=== PATIENT | male | born 1980 | race Caucasian/White ===

== ENCOUNTER 2018-03-25 22:30 | Inpatient (IN) | payer SELFPAY ==
[~2018-03-25] VITALS: Ht 167.6 cm; Wt 61.8 kg
--- NOTE | ~2018-03-25 | EKG ---
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
[2018-03-25 22:30] VITALS: BP 167/116
[~2018-03-25 22:30] MED LIST: ATARAX,VISTARIL50 MG PO; ATENOLOL50 M1 PO; LEVETIRACETAM500 MG PO; LOSARTAN POTAS100 M1 PO; NATURE'S BLEND F1 MG PO; NKHM; THERA TABS1 TAB PO; VICODIN ES 7501 TAB PO; VITAMIN B-11 TAB PO; ZOFRAN4 MG PO
[2018-03-25 22:45] VITALS: BP 167/116
[2018-03-25 23:05] LABS: ACT PARTIAL THROMBO TIME 29.9 SECONDS (20.8-31.5); INTERNATIONAL NORM RATIO 1.2 (2.0-3.5)
[2018-03-25 23:10] LABS: BASO # 0.1 10*3/uL (0.0-0.1); BASO % 0.6 % (0.0-1.0); EOS # 0.1 10*3/uL (0.0-0.4); EOS % 1.2 % (1.0-4.0); HEMATOCRIT 44.9 % (42.0-52.0); HEMOGLOBIN 16.6 g/dl (14.0-18.0); LYMPH # 1.8 10*3/uL (1.3-4.4); LYMPH % 20.1 % (27.0-41.0); MEAN CELL VOLUME 104.2 fl (80.0-94.0); MEAN CORPUSCULAR HGB 38.5 pg (27.0-31.0); MEAN PLATELET VOLUME 11.2 fl (9.6-12.3); MONO # 1.1 10*3/uL (0.1-1.0); MONO % 11.7 % (3.0-9.0); NEUT # 5.9 10*3/uL (2.3-7.9); NEUT % 65.8 % (47.0-73.0); PLATELET COUNT AUTOMATED 115 10*3/uL (130-400); RED BLOOD COUNT 4.31 10*6/uL (4.50-5.90); RED CELL DISTRI WIDTH 11.9 % (0-14.5)
[2018-03-25 23:12] LABS: ALBUMIN 3.2 gm/dl (3.1-4.5); ALKALINE PHOSPHATASE 212 U/L (45-117); BUN 2 mg/dl (7-24); CHLORIDE 81 mmol/L (98-107); CREATININE 0.83 mg/dL (0.70-1.30); POTASSIUM 3.2 mmol/L (3.5-5.1); SGOT/AST 83 IU/L (3-35); SGPT/ALT 49 U/L (12-78); TOTAL PROTEIN 7.6 gm/dL (6.4-8.2)
[2018-03-25 23:13] LABS: TROPONIN I < 0.015 ng/ml (<0.045)
[2018-03-25 23:14] LABS: ACETAMINOPHEN (TYLENOL) < 5.0 ug/ml (10-30); SODIUM 118 mmol/L (136-145)
[2018-03-25 23:15] VITALS: BP 147/109
[2018-03-25 23:40] VITALS: BP 130/106
[2018-03-26] VITALS (9 sets, daily range): BP systolic 104–141; BP diastolic 70–95
[2018-03-26 00:10] LABS: BILIRUBIN 1+ (NEGATIVE); BLOOD NEGATIVE (NEGATIVE); CLARITY SL CLOUDY (CLEAR); COLOR YELLOW (YELLOW); GLUCOSE NEGATIVE (NEGATIVE); KETONE TRACE (NEGATIVE); LEUKO ESTERASE NEGATIVE (NEGATIVE); NITRITE POSITIVE (NEGATIVE); SPECIFIC GRAVITY >= 1.030 (1.005-1.030)
[2018-03-26 00:16] LABS: MUCOUS 1+
[2018-03-26 00:17] LABS: BACTERIA TRACE
[2018-03-26 00:19] LABS: URINE AMPHETAMINES < 1000 (1000ng/ml); URINE BARBITURATES < 200 (200ng/ml); URINE BENZODIAZEPINES < 200 (200ng/ml); URINE CANNABINOIDS (THC) < 50 (50ng/ml); URINE COCAINE < 300 (300ng/ml); URINE METHADONE < 300 (300ng/ml); URINE OPIATES < 300 (300ng/ml)
[2018-03-26 00:21] LABS: URINE PHENCYCLIDINE < 25 (25ng/ml)
[2018-03-26 01:12] LABS: PHOSPHOROUS 2.6 mg/dL (2.5-4.9)
[2018-03-26 04:19] LABS: URINE CHLORIDE, RANDOM < 10 mmol/L
[2018-03-26 06:56] LABS: ALBUMIN 2.6 gm/dl (3.1-4.5); ALKALINE PHOSPHATASE 167 U/L (45-117); BUN 2 mg/dl (7-24); CHLORIDE 89 mmol/L (98-107); CHOLESTEROL 79 mg/dL (<200); CREATININE 0.69 mg/dL (0.70-1.30); HDL CHOLESTEROL 22 mg/dl (40-60); LDL CHOLESTEROL 33 mg/dL (9-159); PHOSPHOROUS 3.3 mg/dL (2.5-4.9); POTASSIUM 3.8 mmol/L (3.5-5.1); SGOT/AST 64 IU/L (3-35); SGPT/ALT 37 U/L (12-78); SODIUM 126 mmol/L (136-145); TOTAL PROTEIN 5.9 gm/dL (6.4-8.2); TRIGLYCERIDES 122 mg/dl (<150); VLDL CHOLESTEROL 24 mg/dL (6-40)
[2018-03-26 06:58] LABS: FREE T4 1.01 ng/dl (0.76-1.46)
[2018-03-26 07:02] LABS: THYROID STIM HORMONE (HS) 0.918 uIU/ml (0.358-4.75)
[2018-03-26 07:31] LABS: BASO % 0.5 % (0.0-1.0); EOS # 0.1 10*3/uL (0.0-0.4); EOS % 1.6 % (1.0-4.0); LYMPH # 1.2 10*3/uL (1.3-4.4); MEAN CELL VOLUME 105.5 fl (80.0-94.0); MEAN CORPUSCULAR HGB 38.5 pg (27.0-31.0); MEAN CORPUSCULAR HGB CONC 36.5 g/dl (33.0-37.0); MEAN PLATELET VOLUME 11.1 fl (9.6-12.3); MONO # 0.8 10*3/uL (0.1-1.0); MONO % 10.8 % (3.0-9.0); NEUT # 5.1 10*3/uL (2.3-7.9); NEUT % 70.7 % (47.0-73.0); NUCLEATED RED BLOOD CELL 0.3 % (0.0-0.0); PLATELET COUNT AUTOMATED 108 10*3/uL (130-400); RED BLOOD COUNT 3.66 10*6/uL (4.50-5.90); WHITE BLOOD COUNT 7.3 10*3/uL (4.8-10.8)
[2018-03-26 08:11] LABS: HEMOGLOBIN 14.1 g/dl (14.0-18.0)
[2018-03-26 08:12] LABS: HEMATOCRIT 38.6 % (42.0-52.0)
[2018-03-27] VITALS: BP 118/82
[2018-03-27 04:00] VITALS: BP 110/76
[2018-03-27 05:52] LABS: BUN 3 mg/dl (7-24); CHLORIDE 98 mmol/L (98-107); CREATININE 0.52 mg/dL (0.70-1.30); POTASSIUM 3.2 mmol/L (3.5-5.1); SODIUM 131 mmol/L (136-145)
[2018-03-27 06:08] LABS: BASO # 0.1 10*3/uL (0.0-0.1); BASO % 0.8 % (0.0-1.0); EOS # 0.2 10*3/uL (0.0-0.4); EOS % 2.9 % (1.0-4.0); HEMATOCRIT 38.8 % (42.0-52.0); HEMOGLOBIN 14.1 g/dl (14.0-18.0); LYMPH # 1.3 10*3/uL (1.3-4.4); LYMPH % 22.2 % (27.0-41.0); MEAN CELL VOLUME 107.5 fl (80.0-94.0); MEAN CORPUSCULAR HGB 39.1 pg (27.0-31.0); MEAN CORPUSCULAR HGB CONC 36.3 g/dl (33.0-37.0); MEAN PLATELET VOLUME 11.4 fl (9.6-12.3); MONO # 0.6 10*3/uL (0.1-1.0); MONO % 9.6 % (3.0-9.0); NEUT # 3.8 10*3/uL (2.3-7.9); NEUT % 63.8 % (47.0-73.0); PLATELET COUNT AUTOMATED 114 10*3/uL (130-400); RED BLOOD COUNT 3.61 10*6/uL (4.50-5.90); RED CELL DISTRI WIDTH 12.1 % (0-14.5); WHITE BLOOD COUNT 5.9 10*3/uL (4.8-10.8)
[2018-03-27 08:00] VITALS: BP 120/84
[2018-03-27 12:00] VITALS: BP 139/98
[2018-03-27 16:00] VITALS: BP 130/82
[2018-03-27 20:00] VITALS: BP 142/92
[2018-03-28] VITALS: BP 158/98
[2018-03-28 06:04] LABS: ALBUMIN 2.7 gm/dl (3.1-4.5); BUN 4 mg/dl (7-24); CHLORIDE 98 mmol/L (98-107); CREATININE 0.53 mg/dL (0.70-1.30); POTASSIUM 3.2 mmol/L (3.5-5.1); SODIUM 132 mmol/L (136-145)
[2018-03-28 08:00] VITALS: BP 130/80
[2018-03-28 13:15] VITALS: BP 130/97
[2018-03-28 16:00] VITALS: BP 137/100
[2018-03-28 16:08] VITALS: BP 124/84
[2018-03-28 20:00] VITALS: BP 120/88
[2018-03-29] VITALS: BP 142/90
[2018-03-29 04:48] LABS: HEMATOCRIT 38.8 % (42.0-52.0); HEMOGLOBIN 13.4 g/dl (14.0-18.0); MEAN CORPUSCULAR HGB 38.3 pg (27.0-31.0); MEAN CORPUSCULAR HGB CONC 34.5 g/dl (33.0-37.0); MEAN PLATELET VOLUME 10.9 fl (9.6-12.3); RED CELL DISTRI WIDTH 12.4 % (0-14.5); WHITE BLOOD COUNT 7.6 10*3/uL (4.8-10.8)
[2018-03-29 04:57] LABS: MEAN CELL VOLUME 110.9 fl (80.0-94.0); PLATELET COUNT AUTOMATED 167 10*3/uL (130-400)
[2018-03-29 05:05] LABS: BUN 7 mg/dl (7-24); CHLORIDE 102 mmol/L (98-107); CREATININE 0.59 mg/dL (0.70-1.30); POTASSIUM 3.2 mmol/L (3.5-5.1); SODIUM 135 mmol/L (136-145)
[2018-03-29 05:15] LABS: TOTAL CELLS COUNTED 100 #CELLS
[2018-03-29 05:16] LABS: PLATELET SUFFICIENCY NORMAL (NORMAL)
[2018-03-29 08:00] VITALS: BP 124/90
== END 2018-03-29 11:22 | disposition home or self-care (01) | DRG 101 ==
LOC: ED 22:30 → ICCU 23:42 → EDHOLD 23:42 → ICCU 03-26 00:06
PROVIDERS: Family Medicine; Internal Medicine; Internal Medicine Nephrology; Student in an Organized Health Care Education/Training Program
DX: G40.909 Epilepsy, unspecified, not intractable, without status epilepticus (principal); E87.1 Hypo-osmolality and hyponatremia; F10.239 Alcohol dependence with withdrawal, unspecified; R65.10 Systemic inflammatory response syndrome (SIRS) of non-infectious origin without acute organ dysfunction; E72.20 Disorder of urea cycle metabolism, unspecified; D75.89 Other specified diseases of blood and blood-forming organs; D69.6 Thrombocytopenia, unspecified; E87.6 Hypokalemia; E87.8 Other disorders of electrolyte and fluid balance, not elsewhere classified; R73.9 Hyperglycemia, unspecified; E80.6 Other disorders of bilirubin metabolism; I10 Essential (primary) hypertension; F41.9 Anxiety disorder, unspecified; F17.210 Nicotine dependence, cigarettes, uncomplicated; Z71.6 Tobacco abuse counseling; Z82.49 Family history of ischemic heart disease and other diseases of the circulatory system; Z83.3 Family history of diabetes mellitus

== ENCOUNTER → 2018-05-27 | Emergency (ER) | payer OTHER ==
[~2018-05-27] VITALS: Ht 172.7 cm; Wt 72.6 kg
--- NOTE | ~2018-05-27 | EKG ---
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
--- NOTE | ~2018-05-27 | EKG ---
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 : 1980 Requested By: RAZA ROQUE Order Number: [id number] Reading MD: Danilo Gallagher MD Measurements Intervals [place] Rate: 139 P: 48 [place]: 184 QRS: 9 QRSD: 113 T: 85 QT: 315 QTc: 479 Interpretive Statements Sinus tachycardia Probable left atrial enlargement Borderline intraventricular conduction delay Borderline low voltage, extremity leads Minimal ST depression, lateral leads Borderline prolonged QT interval Baseline wander in lead(s) I,II,aVR,aVL,V4 Compared to ECG 03/25/2018 22:50:02 ST (T wave) deviation now present Electronically Signed On 05-28-2018 8:27:58 PST by Danilo Gallagher MD CM:EKGRPT:ELECTROCARDIOGRAM REPORT [id number] RAZA BERMUDEZ DRAFT REPORT RAZA ROQUE DO
[2018-05-27 14:04] LABS: ABG BASE EXCESS -1.1 mmol/L (-2.0-2.0); ABG HCO3 21.6 mmol/l (22-26); ABG O2 SATURATION 96.7 % (95-97); ARTERIAL BLOOD GAS PCO2 32.2 mmHg (35-45); ARTERIAL BLOOD GAS PH 7.441 (7.35-7.45); ARTERIAL BLOOD GAS PO2 84.2 mmHg (80-90)
[2018-05-27 14:49] LABS: INTERNATIONAL NORM RATIO 1.2 (2.0-3.5)
[2018-05-27 14:55] LABS: BASO % 0.2 % (0.0-1.0); EOS % 0.1 % (1.0-4.0); HEMATOCRIT 43.6 % (42.0-52.0); HEMOGLOBIN 15.7 g/dl (14.0-18.0); LYMPH # 0.6 10*3/uL (1.3-4.4); MEAN CELL VOLUME 101.6 fl (80.0-94.0); MEAN CORPUSCULAR HGB 36.6 pg (27.0-31.0); MEAN PLATELET VOLUME 11.1 fl (9.6-12.3); MONO # 0.7 10*3/uL (0.1-1.0); NEUT # 10.7 10*3/uL (2.3-7.9); NEUT % 88.1 % (47.0-73.0); PLATELET COUNT AUTOMATED 85 10*3/uL (130-400); RED BLOOD COUNT 4.29 10*6/uL (4.50-5.90); RED CELL DISTRI WIDTH 12.7 % (0-14.5); WHITE BLOOD COUNT 12.1 10*3/uL (4.8-10.8)
[2018-05-27 14:58] LABS: ALBUMIN 2.6 gm/dl (3.1-4.5); BUN 6 mg/dl (7-24); CHLORIDE 91 mmol/L (98-107); CREATININE 0.64 mg/dL (0.70-1.30); POTASSIUM 3.2 mmol/L (3.5-5.1); SGOT/AST 86 IU/L (3-35); SGPT/ALT 46 U/L (12-78); SODIUM 126 mmol/L (136-145); TOTAL PROTEIN 6.6 gm/dL (6.4-8.2)
[2018-05-27 15:03] LABS: ALKALINE PHOSPHATASE 231 U/L (45-117)
[2018-05-27 15:20] LABS: ACETAMINOPHEN (TYLENOL) < 5.0 ug/ml (10-30); ETHYL ALCOHOL < 3.0 mg/dl (<3); TROPONIN I < 0.015 ng/ml (<0.045)
[2018-05-27 15:57] LABS: BILIRUBIN NEGATIVE (NEGATIVE); BLOOD NEGATIVE (NEGATIVE); CLARITY SL CLOUDY (CLEAR); COLOR YELLOW (YELLOW); GLUCOSE TRACE (NEGATIVE); KETONE TRACE (NEGATIVE); LEUKO ESTERASE NEGATIVE (NEGATIVE); NITRITE NEGATIVE (NEGATIVE); SPECIFIC GRAVITY 1.015 (1.005-1.030)
[2018-05-27 16:08] LABS: MUCOUS 1+
[2018-05-27 16:16] LABS: URINE AMPHETAMINES < 1000 (1000ng/ml); URINE BARBITURATES < 200 (200ng/ml); URINE BENZODIAZEPINES < 200 (200ng/ml); URINE CANNABINOIDS (THC) < 50 (50ng/ml); URINE COCAINE < 300 (300ng/ml); URINE METHADONE < 300 (300ng/ml); URINE OPIATES < 300 (300ng/ml)
[2018-05-27 16:20] LABS: URINE PHENCYCLIDINE < 25 (25ng/ml)
== END ==
LOC: ED 12:21
PROVIDERS: Internal Medicine
DX: G40.909 Epilepsy, unspecified, not intractable, without status epilepticus (principal); E87.1 Hypo-osmolality and hyponatremia; I10 Essential (primary) hypertension; F17.200 Nicotine dependence, unspecified, uncomplicated

== ENCOUNTER 2018-11-28 11:22 | Inpatient (IN) | payer OTHER ==
[~2018-11-28] VITALS: Ht 172.7 cm; Wt 62.3 kg
[2018-11-28] VITALS (8 sets, daily range): BP systolic 109–150; BP diastolic 78–98
--- NOTE | ~2018-11-28 | EKG ---
[place], [place] ELECTROCARDIOGRAM REPORT NAME: LESIA NIETO UNIT #: [id number] ROOM: [facility] DOCTOR: GIOVANNA DRAFT REPORT BIRTHDATE: [birth year] [facility] Test Date: 2018-11-28 Test Time: 11:37:02 Pat Name: LESIA NIETO Department: Room: 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1980 Requested By: AMANDA MACIAS Order Number: [id number] Reading MD: Lucita Masters MD Measurements Intervals [place] Rate: 115 P: 76 [place]: 166 QRS: 4 QRSD: 82 T: 54 QT: 336 QTc: 465 Interpretive Statements Sinus tachycardia Right atrial enlargement Probable anterolateral infarct, old Minimal ST depression, anterolateral leads Compared to ECG 05/27/2018 17:42:34 Myocardial infarct finding now present ST (T wave) deviation now present Electronically Signed On 11-29-2018 11:41:08 PDT by Lucita Masters MD CM:EKGRPT:ELECTROCARDIOGRAM REPORT [id number] AMANDA MACIAS MD EPIPHANY DRAFT REPORT AMANDA MACIAS MD
[2018-11-28 11:57] LABS: ACT PARTIAL THROMBO TIME 28.2 SECONDS (20.0-32.1); INTERNATIONAL NORM RATIO 1.2 (2.0-3.5)
[2018-11-28 12:01] LABS: BASO % 0.5 % (0.0-1.0); EOS # 0.1 10*3/uL (0.0-0.4); EOS % 1.9 % (1.0-4.0); HEMATOCRIT 38.6 % (42.0-52.0); HEMOGLOBIN 14.3 g/dl (14.0-18.0); LYMPH # 1.6 10*3/uL (1.3-4.4); LYMPH % 22.3 % (27.0-41.0); MEAN CELL VOLUME 100.5 fl (80.0-94.0); MEAN CORPUSCULAR HGB 37.2 pg (27.0-31.0); MONO # 0.8 10*3/uL (0.1-1.0); MONO % 10.3 % (3.0-9.0); NEUT # 4.8 10*3/uL (2.3-7.9); NEUT % 64.7 % (47.0-73.0); PLATELET COUNT AUTOMATED 127 10*3/uL (130-400); RED BLOOD COUNT 3.84 10*6/uL (4.50-5.90); RED CELL DISTRI WIDTH 12.4 % (0-14.5); WHITE BLOOD COUNT 7.4 10*3/uL (4.8-10.8)
[2018-11-28 12:02] LABS: ALKALINE PHOSPHATASE 354 U/L (45-117); BUN 2 mg/dl (7-24); CHLORIDE 80 mmol/L (98-107); CREATININE 0.62 mg/dL (0.70-1.30); POTASSIUM 2.7 mmol/L (3.5-5.1); SGOT/AST 112 IU/L (3-35); SGPT/ALT 47 U/L (12-78); SODIUM 122 mmol/L (136-145); TOTAL PROTEIN 7.3 gm/dL (6.4-8.2)
[2018-11-28 12:06] LABS: ETHYL ALCOHOL < 3.0 mg/dl (<3); TROPONIN I < 0.015 ng/ml (<0.045)
[2018-11-28] MEDS ORDERED: TENORMIN25 M1 PO (15:05)
[2018-11-28] MEDS ORDERED: LASIX20 MG PO (15:05)
[2018-11-28] MEDS ORDERED: SODIUM CHLORIDE1 GM PO (15:07)
[2018-11-28] MEDS ORDERED: KEPPRA500 MG PO (15:08)
[2018-11-28 17:49] LABS: BILIRUBIN NEGATIVE (NEGATIVE); BLOOD NEGATIVE (NEGATIVE); CLARITY CLEAR (CLEAR); COLOR YELLOW (YELLOW); GLUCOSE NEGATIVE (NEGATIVE); KETONE NEGATIVE (NEGATIVE); LEUKO ESTERASE NEGATIVE (NEGATIVE); NITRITE NEGATIVE (NEGATIVE); SPECIFIC GRAVITY <= 1.005 (1.005-1.030)
[2018-11-28 17:53] LABS: URINE CHLORIDE, RANDOM < 10 mmol/L
[2018-11-28 17:57] LABS: URINE AMPHETAMINES < 1000 (1000ng/ml); URINE BARBITURATES < 200 (200ng/ml); URINE BENZODIAZEPINES < 200 (200ng/ml); URINE CANNABINOIDS (THC) < 50 (50ng/ml); URINE COCAINE < 300 (300ng/ml); URINE METHADONE < 300 (300ng/ml); URINE OPIATES < 300 (300ng/ml)
[2018-11-28 17:58] LABS: URINE PHENCYCLIDINE < 25 (25ng/ml)
[2018-11-28 18:05] LABS: BACTERIA TRACE; EPITHELIAL CELLS 0-2; RBC 0-2 rbc/hpf (0-2); WBC 0-2 wbc/hpf (0-5)
[2018-11-28 19:35] LABS: BUN 3 mg/dl (7-24); CHLORIDE 94 mmol/L (98-107); CREATININE 0.67 mg/dL (0.70-1.30); POTASSIUM 3.4 mmol/L (3.5-5.1); SODIUM 128 mmol/L (136-145)
[2018-11-29] VITALS: BP 136/95
[2018-11-29 04:00] VITALS: BP 132/96
[2018-11-29 06:37] LABS: BASO % 0.9 % (0.0-1.0); EOS # 0.1 10*3/uL (0.0-0.4); EOS % 3.3 % (1.0-4.0); HEMATOCRIT 34.7 % (42.0-52.0); LYMPH # 1.2 10*3/uL (1.3-4.4); LYMPH % 27.3 % (27.0-41.0); MEAN CORPUSCULAR HGB 37.2 pg (27.0-31.0); MEAN CORPUSCULAR HGB CONC 35.2 g/dl (33.0-37.0); MEAN PLATELET VOLUME 11.4 fl (9.6-12.3); MONO # 0.4 10*3/uL (0.1-1.0); MONO % 8.7 % (3.0-9.0); NEUT # 2.5 10*3/uL (2.3-7.9); NEUT % 59.3 % (47.0-73.0); PLATELET COUNT AUTOMATED 121 10*3/uL (130-400); RED BLOOD COUNT 3.28 10*6/uL (4.50-5.90); RED CELL DISTRI WIDTH 12.5 % (0-14.5); WHITE BLOOD COUNT 4.3 10*3/uL (4.8-10.8)
[2018-11-29 06:38] LABS: HEMOGLOBIN 12.2 g/dl (14.0-18.0); MEAN CELL VOLUME 105.8 fl (80.0-94.0)
[2018-11-29 06:44] LABS: ALBUMIN 2.3 gm/dl (3.1-4.5); ALKALINE PHOSPHATASE 258 U/L (45-117); BUN 3 mg/dl (7-24); CHLORIDE 98 mmol/L (98-107); PHOSPHOROUS 2.7 mg/dL (2.5-4.9); POTASSIUM 2.9 mmol/L (3.5-5.1); SGOT/AST 85 IU/L (3-35); SGPT/ALT 36 U/L (12-78); SODIUM 134 mmol/L (136-145); TOTAL PROTEIN 5.6 gm/dL (6.4-8.2)
[2018-11-29 08:00] VITALS: BP 140/100
[2018-11-29 12:00] VITALS: BP 124/88
[2018-11-29 16:00] VITALS: BP 134/94
[2018-11-29 20:00] VITALS: BP 147/93
[2018-11-30] VITALS: BP 133/91
[2018-11-30 05:53] LABS: BASO # 0.1 10*3/uL (0.0-0.1); BASO % 0.8 % (0.0-1.0); EOS # 0.3 10*3/uL (0.0-0.4); EOS % 3.6 % (1.0-4.0); HEMATOCRIT 39.5 % (42.0-52.0); HEMOGLOBIN 13.8 g/dl (14.0-18.0); LYMPH # 1.7 10*3/uL (1.3-4.4); MEAN CELL VOLUME 107.6 fl (80.0-94.0); MEAN CORPUSCULAR HGB 37.6 pg (27.0-31.0); MEAN CORPUSCULAR HGB CONC 34.9 g/dl (33.0-37.0); MEAN PLATELET VOLUME 10.9 fl (9.6-12.3); MONO # 0.7 10*3/uL (0.1-1.0); MONO % 9.8 % (3.0-9.0); NEUT # 4.5 10*3/uL (2.3-7.9); NEUT % 62.4 % (47.0-73.0); PLATELET COUNT AUTOMATED 135 10*3/uL (130-400); RED BLOOD COUNT 3.67 10*6/uL (4.50-5.90); RED CELL DISTRI WIDTH 12.4 % (0-14.5); WHITE BLOOD COUNT 7.2 10*3/uL (4.8-10.8)
[2018-11-30 06:04] LABS: ALBUMIN 2.5 gm/dl (3.1-4.5); ALKALINE PHOSPHATASE 268 U/L (45-117); BUN 2 mg/dl (7-24); CHLORIDE 103 mmol/L (98-107); CREATININE 0.52 mg/dL (0.70-1.30); PHOSPHOROUS 2.9 mg/dL (2.5-4.9); POTASSIUM 3.3 mmol/L (3.5-5.1); SGOT/AST 86 IU/L (3-35); SGPT/ALT 42 U/L (12-78); SODIUM 135 mmol/L (136-145); TOTAL PROTEIN 6.4 gm/dL (6.4-8.2)
[2018-11-30 08:00] VITALS: BP 132/88
[2018-11-30 12:00] VITALS: BP 143/99
[2018-11-30 16:00] VITALS: BP 137/100
[2018-11-30 16:30] VITALS: BP 138/90
[2018-11-30 20:00] VITALS: BP 130/90
[2018-12-01] VITALS: BP 144/96
[2018-12-01 08:00] VITALS: BP 138/98
[2018-12-01 09:42] LABS: HEMATOCRIT 40.8 % (42.0-52.0); HEMOGLOBIN 13.9 g/dl (14.0-18.0); MEAN CELL VOLUME 110.3 fl (80.0-94.0); MEAN CORPUSCULAR HGB 37.6 pg (27.0-31.0); MEAN CORPUSCULAR HGB CONC 34.1 g/dl (33.0-37.0); MEAN PLATELET VOLUME 10.7 fl (9.6-12.3); PLATELET COUNT AUTOMATED 166 10*3/uL (130-400); RED CELL DISTRI WIDTH 12.8 % (0-14.5); WHITE BLOOD COUNT 6.4 10*3/uL (4.8-10.8)
[2018-12-01 10:02] LABS: ALBUMIN 2.6 gm/dl (3.1-4.5); ALKALINE PHOSPHATASE 242 U/L (45-117); BUN 2 mg/dl (7-24); CHLORIDE 103 mmol/L (98-107); CREATININE 0.66 mg/dL (0.70-1.30); POTASSIUM 4.2 mmol/L (3.5-5.1); SGOT/AST 107 IU/L (3-35); SGPT/ALT 53 U/L (12-78); SODIUM 133 mmol/L (136-145); TOTAL PROTEIN 6.7 gm/dL (6.4-8.2)
[2018-12-01 10:11] LABS: ATYPICAL LYMPHS 1 % (0-0); TOTAL CELLS COUNTED 100 #CELLS
[2018-12-01 10:24] LABS: PLATELET SUFFICIENCY NORMAL (NORMAL)
[2018-12-01] MEDS ORDERED: POTASSIUM CHLO10 ME4 PO (10:27)
== END 2018-12-01 11:40 | disposition home or self-care (01) | DRG 101 ==
LOC: ED 11:22 → EDHOLD 12:55 → 4E 12:55 → ICCU 13:08 → 4E 11-29 18:27
PROVIDERS: Emergency Medicine; Family Medicine; Internal Medicine; Registered Nurse; ADMIT Emergency Medicine
DX: G40.909 Epilepsy, unspecified, not intractable, without status epilepticus (principal); F10.239 Alcohol dependence with withdrawal, unspecified; E44.0 Moderate protein-calorie malnutrition; E87.1 Hypo-osmolality and hyponatremia; E83.42 Hypomagnesemia; E87.6 Hypokalemia; R00.0 Tachycardia, unspecified; F41.9 Anxiety disorder, unspecified; R74.0 Nonspecific elevation of levels of transaminase and lactic acid dehydrogenase [LDH]; F17.218 Nicotine dependence, cigarettes, with other nicotine-induced disorders; K76.0 Fatty (change of) liver, not elsewhere classified; E87.8 Other disorders of electrolyte and fluid balance, not elsewhere classified; Z71.6 Tobacco abuse counseling; Z82.49 Family history of ischemic heart disease and other diseases of the circulatory system; Z83.438 Family history of other disorder of lipoprotein metabolism and other lipidemia; Z83.3 Family history of diabetes mellitus; Z79.899 Other long term (current) drug therapy; Z68.20 Body mass index [BMI] 20.0-20.9, adult

== ENCOUNTER → 2019-01-19 | Outpatient (CLI) | payer OTHER ==
[~2019-01-19] MED LIST changes: +KEPPRA500 MG PO; +LASIX20 MG PO; +POTASSIUM CHLO10 ME4 PO; +SODIUM CHLORIDE1 GM PO; +TENORMIN25 M1 PO
== END | disposition home or self-care (01) ==
LOC: RESCLI 01:32
DX: I10 Essential (primary) hypertension (principal); R56.9 Unspecified convulsions; F10.10 Alcohol abuse, uncomplicated; F17.200 Nicotine dependence, unspecified, uncomplicated; Z79.899 Other long term (current) drug therapy

== ENCOUNTER 2019-02-07 13:35 | Inpatient (IN) | payer OTHER ==
[~2019-02-07] VITALS: Ht 172.7 cm; Wt 60.9 kg
--- NOTE | ~2019-02-07 | EKG ---
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
[2019-02-07 13:39] VITALS: BP 160/110
[2019-02-07 14:00] LABS: BASO # 0.1 10*3/uL (0.0-0.1); BASO % 1.3 % (0.0-1.0); EOS # 0.1 10*3/uL (0.0-0.4); EOS % 1.8 % (1.0-4.0); HEMATOCRIT 45.7 % (42.0-52.0); HEMOGLOBIN 15.8 g/dl (14.0-18.0); LYMPH # 1.8 10*3/uL (1.3-4.4); LYMPH % 29.6 % (27.0-41.0); MEAN CELL VOLUME 100.4 fl (80.0-94.0); MEAN CORPUSCULAR HGB 34.7 pg (27.0-31.0); MEAN CORPUSCULAR HGB CONC 34.6 g/dl (33.0-37.0); MEAN PLATELET VOLUME 9.9 fl (9.6-12.3); MONO # 0.6 10*3/uL (0.1-1.0); MONO % 10.4 % (3.0-9.0); NEUT # 3.4 10*3/uL (2.3-7.9); NEUT % 56.7 % (47.0-73.0); PLATELET COUNT AUTOMATED 261 10*3/uL (130-400); RED BLOOD COUNT 4.55 10*6/uL (4.50-5.90); RED CELL DISTRI WIDTH 13.1 % (0-14.5); WHITE BLOOD COUNT 6.1 10*3/uL (4.8-10.8)
[2019-02-07 14:12] LABS: ACT PARTIAL THROMBO TIME 24.4 SECONDS (20.0-32.1); INTERNATIONAL NORM RATIO 1.1 (2.0-3.5)
[2019-02-07 14:16] LABS: ALBUMIN 3.8 gm/dl (3.1-4.5); ALKALINE PHOSPHATASE 123 U/L (45-117); BUN 4 mg/dl (7-24); CHLORIDE 98 mmol/L (98-107); CREATININE 1.15 mg/dL (0.70-1.30); LIPASE 83 U/L (73-393); POTASSIUM 3.3 mmol/L (3.5-5.1); SGOT/AST 19 IU/L (3-35); SGPT/ALT 20 U/L (12-78); SODIUM 131 mmol/L (136-145); TOTAL PROTEIN 7.7 gm/dL (6.4-8.2)
[2019-02-07 14:17] LABS: ETHYL ALCOHOL < 3.0 mg/dl (<3); TROPONIN I < 0.015 ng/ml (<0.045)
[2019-02-07 17:25] VITALS: BP 144/105
[2019-02-07 19:00] VITALS: BP 156/100
--- NOTE | 2019-02-07 19:38 | NUR ---
MEDICATION ADMINISTERED-SEE EMAR. PATIENT RESTING COMFORTBALY IN BED AT THIS TIME. RESPIRATIONS EASY, NON-LABORED ON ROOM AIR. NO DISTRESS NOTED. CALL LIGHT WITHIN REACH. PATIENT DENIES ANY NEEDS. RN WILL CONTINUE TO MONITOR.
[2019-02-07 21:00] VITALS: BP 130/85
[2019-02-07 22:45] VITALS: BP 125/85
[2019-02-07 22:56] VITALS: BP 153/106
--- NOTE | 2019-02-07 22:56 | NUR ---
A 39, admitted to ICCU, under the services of MIK Echeverria DO with a diagnosis of ALCOHOL SEIZURE. Chief complaint is SEIZURE. Patient arrived via stretcher from ER. Monitor applied. Initial assessment completed. Vital signs taken and recorded. MIK ECHEVERRIA DO notified of admission to the unit. Orders received. See assessment for past medical history, medications and allergies. Patient and/or family oriented to unit. [facility] ICCU visitation policy reviewed. Clothing/patient valuable form completed. AYDEE ARCEO
[2019-02-08] VITALS: BP 155/109
[2019-02-08 03:57] VITALS: BP 140/98
--- NOTE | 2019-02-08 07:08 | NUR ---
24 HR chart check completed.
[2019-02-08 08:00] VITALS: BP 135/96
--- NOTE | 2019-02-08 08:23 | NUR ---
PT RESTING IN BED WITH NO C/O ANY. NO SIGNS OF SEIZURES. VITALS STABLE. EATING BREAKFAST.
--- NOTE | 2019-02-08 10:30 | NUR ---
Group Supervisor Yard in to talk to patient. Patient states lives at home alone with his family checking in on him. There are 17 steps in the home. Physician: Prince Williamson Pharmacy: [facility] Home health services: none Patient's level of ADLs: INDEPENDENT Patient has working utilities: yes DME: none Follow-up physician's appointment after d/c: he states he has an appt with the resident clinic on 02/22 Does patient want to access PORTAL?: no Discharge plan discussed with patient. He lives at home with his family checking in on him. He is independent in his ADLs and ambulation. Discussed home health care services and he denies any home needs at this time. When medically stable he will be discharged to home. Her mother or father will transport on discharge. KWABENA GARCÍA
[2019-02-08 12:00] VITALS: BP 124/89
[2019-02-08 16:00] VITALS: BP 108/65
[2019-02-08 20:00] VITALS: BP 136/83
[2019-02-09] VITALS: BP 141/82
[2019-02-09 04:00] VITALS: BP 136/87
[2019-02-09 05:33] LABS: ALBUMIN 2.8 gm/dl (3.1-4.5); ALKALINE PHOSPHATASE 91 U/L (45-117); BUN 8 mg/dl (7-24); CHLORIDE 104 mmol/L (98-107); CREATININE 0.67 mg/dL (0.70-1.30); POTASSIUM 3.1 mmol/L (3.5-5.1); SGOT/AST 12 IU/L (3-35); SGPT/ALT 12 U/L (12-78); SODIUM 136 mmol/L (136-145); TOTAL PROTEIN 6.2 gm/dL (6.4-8.2)
[2019-02-09 05:55] LABS: BASO # 0.1 10*3/uL (0.0-0.1); BASO % 0.7 % (0.0-1.0); EOS # 0.3 10*3/uL (0.0-0.4); EOS % 4.5 % (1.0-4.0); HEMATOCRIT 39.7 % (42.0-52.0); HEMOGLOBIN 13.4 g/dl (14.0-18.0); LYMPH # 1.9 10*3/uL (1.3-4.4); MEAN CELL VOLUME 100.8 fl (80.0-94.0); MEAN CORPUSCULAR HGB CONC 33.8 g/dl (33.0-37.0); MEAN PLATELET VOLUME 10.7 fl (9.6-12.3); MONO # 0.6 10*3/uL (0.1-1.0); NEUT # 4.1 10*3/uL (2.3-7.9); NEUT % 59.5 % (47.0-73.0); PLATELET COUNT AUTOMATED 221 10*3/uL (130-400); RED BLOOD COUNT 3.94 10*6/uL (4.50-5.90); RED CELL DISTRI WIDTH 13.1 % (0-14.5)
[2019-02-09 08:00] VITALS: BP 137/97
--- NOTE | 2019-02-09 08:06 | NUR ---
SITTING UP IN BED WITH NO C/O ANY. DENIES AND SEIZURE ACTIVITY AT THIS TIME. VITALS STABLE. BREAKFAST ORDERED.
--- NOTE | 2019-02-09 11:00 | NUR ---
Integrated Logistics Support Manager in to see patient. No new needs or request at this time. He denies any home needs. When medically stable he will be discharged to home.
[2019-02-09 12:00] VITALS: BP 114/76
[2019-02-09 16:00] VITALS: BP 110/80
[2019-02-09 20:00] VITALS: BP 130/85
--- NOTE | 2019-02-09 20:10 | NUR ---
PT RECEIVED IN 425 VIA WC WITH BELONGINGS. ORIENTED TO ROOM HEP LOCK INTACT. ALERT. NO DISTRESS NOTED.
--- NOTE | 2019-02-09 22:17 | NUR ---
RESTING IN BED WATCHING TV. REMAINS WITHOUT DISTRESS.
[2019-02-10] VITALS: BP 129/89
--- NOTE | 2019-02-10 02:45 | NUR ---
24 HR chart check completed.
[2019-02-10 07:43] LABS: BUN 8 mg/dl (7-24); CHLORIDE 103 mmol/L (98-107); CREATININE 0.66 mg/dL (0.70-1.30); POTASSIUM 3.7 mmol/L (3.5-5.1); SODIUM 134 mmol/L (136-145)
[2019-02-10 08:00] VITALS: BP 147/95
[2019-02-10 11:42] VITALS: BP 128/92
--- NOTE | 2019-02-10 12:12 | NUR ---
[place] STAFF SPOKE PATIENT ABOUT [facility] SERVICES. PATIENT STATED THAT HE IS NOT INTERESTED AT THIS TIME. MERT CABA B.A. GAS TURBINE MECHANIC
--- NOTE | 2019-02-10 14:16 | NUR ---
Discharge instructions reviewed with patient/family. Patient receptive and verbalizes understanding. Follow-up care arranged. Written instructions given to patient/family. HOMA CHRISTY
== END 2019-02-10 14:16 | disposition home or self-care (01) | DRG 897 ==
LOC: ED 13:35 → ICCU 18:34 → 4E 18:34 → EDHOLD 18:34 → ICCU 21:57 → 4E 02-09 20:02
PROVIDERS: Emergency Medicine; ADMIT Family Medicine
DX: F10.230 Alcohol dependence with withdrawal, uncomplicated (principal); E87.1 Hypo-osmolality and hyponatremia; E87.2 Acidosis; Z71.6 Tobacco abuse counseling; F41.9 Anxiety disorder, unspecified; F17.210 Nicotine dependence, cigarettes, uncomplicated; G40.909 Epilepsy, unspecified, not intractable, without status epilepticus; Z83.3 Family history of diabetes mellitus; E87.6 Hypokalemia; Z82.49 Family history of ischemic heart disease and other diseases of the circulatory system; Z84.89 Family history of other specified conditions; R73.9 Hyperglycemia, unspecified; K76.0 Fatty (change of) liver, not elsewhere classified; D75.89 Other specified diseases of blood and blood-forming organs

== ENCOUNTER → 2019-02-22 | Outpatient (CLI) | payer OTHER ==
[2019-02-22 16:06] LABS: BUN 5 mg/dl (7-24); CHLORIDE 102 mmol/L (98-107); CREATININE 0.72 mg/dL (0.70-1.30); POTASSIUM 3.9 mmol/L (3.5-5.1); SODIUM 133 mmol/L (136-145)
== END | disposition home or self-care (01) ==
LOC: RESCLI 00:52
PROVIDERS: Internal Medicine
DX: I10 Essential (primary) hypertension (principal); R56.9 Unspecified convulsions; F10.10 Alcohol abuse, uncomplicated; F17.210 Nicotine dependence, cigarettes, uncomplicated; Z79.899 Other long term (current) drug therapy

== ENCOUNTER → 2019-05-04 | Outpatient (CLI) | payer OTHER | END | disposition home or self-care (01) | LOC: RESCLI 00:50 | DX: I10 Essential (primary) hypertension (principal); F10.10 Alcohol abuse, uncomplicated; F17.210 Nicotine dependence, cigarettes, uncomplicated; F17.200 Nicotine dependence, unspecified, uncomplicated; R56.9 Unspecified convulsions; Z79.899 Other long term (current) drug therapy; Z72.89 Other problems related to lifestyle ==

== ENCOUNTER → 2019-11-12 | Outpatient (CLI) | payer OTHER | END | disposition home or self-care (01) | LOC: RESCLI 01:58 | DX: I10 Essential (primary) hypertension (principal); R56.9 Unspecified convulsions; F10.230 Alcohol dependence with withdrawal, uncomplicated; F17.210 Nicotine dependence, cigarettes, uncomplicated; Z79.899 Other long term (current) drug therapy ==

== ENCOUNTER → 2019-11-19 | Outpatient (CLI) | payer OTHER | END | disposition home or self-care (01) | LOC: RESCLI 01:12 | DX: I10 Essential (primary) hypertension (principal); R00.0 Tachycardia, unspecified; F10.20 Alcohol dependence, uncomplicated; D64.9 Anemia, unspecified; F17.210 Nicotine dependence, cigarettes, uncomplicated; F10.230 Alcohol dependence with withdrawal, uncomplicated; Z00.00 Encounter for general adult medical examination without abnormal findings; R56.9 Unspecified convulsions; Z79.899 Other long term (current) drug therapy ==

== ENCOUNTER → 2019-12-15 | Outpatient (CLI) | payer OTHER ==
[2019-12-15 11:07] LABS: BASO # 0.1 10*3/uL (0.0-0.1); BASO % 1.3 % (0.0-1.0); EOS # 0.3 10*3/uL (0.0-0.4); EOS % 4.1 % (1.0-4.0); HEMATOCRIT 46.4 % (42.0-52.0); LYMPH # 1.9 10*3/uL (1.3-4.4); LYMPH % 24.9 % (27.0-41.0); MEAN CELL VOLUME 91.3 fl (80.0-94.0); MEAN CORPUSCULAR HGB 30.1 pg (27.0-31.0); MEAN PLATELET VOLUME 10.4 fl (9.6-12.3); MONO # 0.8 10*3/uL (0.1-1.0); NEUT # 4.4 10*3/uL (2.3-7.9); NEUT % 59.3 % (47.0-73.0); PLATELET COUNT AUTOMATED 314 10*3/uL (130-400); RED BLOOD COUNT 5.08 10*6/uL (4.50-5.90); RED CELL DISTRI WIDTH 15.1 % (0-14.5); WHITE BLOOD COUNT 7.5 10*3/uL (4.8-10.8)
[2019-12-15 11:33] LABS: ALBUMIN 3.7 gm/dl (3.1-4.5); ALKALINE PHOSPHATASE 100 U/L (45-117); BUN 8 mg/dl (7-24); CHLORIDE 102 mmol/L (98-107); CHOLESTEROL 160 mg/dL (<200); CREATININE 0.86 mg/dL (0.70-1.30); HDL CHOLESTEROL 31 mg/dl (40-60); LDL CHOLESTEROL 84 mg/dL (9-159); POTASSIUM 4.5 mmol/L (3.5-5.1); SGOT/AST 25 IU/L (3-35); SGPT/ALT 48 U/L (12-78); SODIUM 135 mmol/L (136-145); TOTAL PROTEIN 8.1 gm/dL (6.4-8.2); TRIGLYCERIDES 226 mg/dl (<150); VLDL CHOLESTEROL 45 mg/dL (6-40)
== END | disposition home or self-care (01) ==
LOC: LAB 10:21
PROVIDERS: Internal Medicine
DX: Z00.00 Encounter for general adult medical examination without abnormal findings (principal); I10 Essential (primary) hypertension; Z79.899 Other long term (current) drug therapy

== ENCOUNTER → 2019-12-21 | Outpatient (CLI) | payer OTHER | END | disposition home or self-care (01) | LOC: RESCLI 05:46 | DX: F10.10 Alcohol abuse, uncomplicated (principal); I10 Essential (primary) hypertension; R56.9 Unspecified convulsions; E78.1 Pure hyperglyceridemia; K76.0 Fatty (change of) liver, not elsewhere classified; Z71.3 Dietary counseling and surveillance; Z79.899 Other long term (current) drug therapy ==

== ENCOUNTER → 2020-03-01 | Outpatient (CLI) | payer OTHER | END | disposition home or self-care (01) | LOC: RESCLI 01:24 | PROVIDERS: ATTEND Internal Medicine Nephrology | DX: R56.9 Unspecified convulsions (principal); I10 Essential (primary) hypertension; K76.0 Fatty (change of) liver, not elsewhere classified; E78.1 Pure hyperglyceridemia; F10.20 Alcohol dependence, uncomplicated; F17.210 Nicotine dependence, cigarettes, uncomplicated; Z23 Encounter for immunization; Z71.6 Tobacco abuse counseling ==

== ENCOUNTER → 2020-06-14 | Outpatient (CLI) | payer OTHER ==
[~2020-06-14] MED LIST changes: +BACITRACIN ZINC14 GM T; +CIPRO500 MG PO; +LOSARTAN POTASS50 M1 PO; +MULTIVITAMINS1 EAC6 PO; +VITAMIN B-1100 M1 PO; +VITAMIN D250 MCG PO
== END | disposition home or self-care (01) ==
LOC: RESCLI 01:23
PROVIDERS: ATTEND Internal Medicine Nephrology
DX: E78.1 Pure hyperglyceridemia (principal); I10 Essential (primary) hypertension; R56.9 Unspecified convulsions; K76.0 Fatty (change of) liver, not elsewhere classified; F41.9 Anxiety disorder, unspecified; Z79.899 Other long term (current) drug therapy

== ENCOUNTER 2020-09-05 22:49 | Observation (INO) | payer OTHER ==
[~2020-09-05] VITALS: Ht 172.7 cm; Wt 68.6 kg
[~2020-09-05 22:49] MED LIST changes: -BACITRACIN ZINC14 GM T; -CIPRO500 MG PO; -LOSARTAN POTASS50 M1 PO; -MULTIVITAMINS1 EAC6 PO; -VITAMIN B-1100 M1 PO; -VITAMIN D250 MCG PO
[2020-09-05 23:05] VITALS: BP 187/109
[2020-09-05 23:13] LABS: BASO # 0.1 10*3/uL (0.0-0.1); BASO % 0.7 % (0.0-1.0); EOS # 0.1 10*3/uL (0.0-0.4); HEMATOCRIT 41.9 % (42.0-52.0); LYMPH # 1.5 10*3/uL (1.3-4.4); LYMPH % 16.1 % (27.0-41.0); MEAN CELL VOLUME 104.5 fl (80.0-94.0); MEAN CORPUSCULAR HGB 36.9 pg (27.0-31.0); MEAN CORPUSCULAR HGB CONC 35.3 g/dl (33.0-37.0); MEAN PLATELET VOLUME 10.6 fl (9.6-12.3); MONO # 0.7 10*3/uL (0.1-1.0); MONO % 7.3 % (3.0-9.0); NEUT % 74.4 % (47.0-73.0); PLATELET COUNT AUTOMATED 196 10*3/uL (130-400); RED BLOOD COUNT 4.01 10*6/uL (4.50-5.90); RED CELL DISTRI WIDTH 12.2 % (0-14.5); WHITE BLOOD COUNT 9.5 10*3/uL (4.8-10.8)
[2020-09-05 23:31] LABS: ALBUMIN 3.1 gm/dl (3.1-4.5); ALKALINE PHOSPHATASE 605 U/L (45-117); BUN 1 mg/dl (7-24); CHLORIDE 89 mmol/L (98-107); CREATININE 0.91 mg/dL (0.70-1.30); POTASSIUM 2.9 mmol/L (3.5-5.1); SGOT/AST 128 IU/L (3-35); SGPT/ALT 40 U/L (12-78); SODIUM 125 mmol/L (136-145); TOTAL PROTEIN 8.7 gm/dL (6.4-8.2)
[2020-09-05 23:35] LABS: ETHYL ALCOHOL < 3.0 mg/dl (<3)
[2020-09-06] VITALS (7 sets, daily range): BP systolic 121–146; BP diastolic 77–103
[2020-09-06 00:04] LABS: BILIRUBIN 2+ (Negative); BLOOD Negative (Negative); CLARITY Cloudy (Clear); COLOR Orange (Yellow); GLUCOSE 1+ (Negative); KETONE Trace (Negative); LEUKO ESTERASE 1+ (Negative); NITRITE Positive (Negative)
[2020-09-06 00:24] LABS: BACTERIA 1+
[2020-09-06 00:32] LABS: URINE AMPHETAMINES < 1000 (1000ng/ml); URINE BARBITURATES < 200 (200ng/ml); URINE BENZODIAZEPINES < 200 (200ng/ml); URINE CANNABINOIDS (THC) < 50 (50ng/ml); URINE COCAINE < 300 (300ng/ml); URINE METHADONE < 300 (300ng/ml); URINE OPIATES < 300 (300ng/ml); URINE PHENCYCLIDINE < 25 (25ng/ml)
[2020-09-06] MEDS ORDERED: ATENOLOL50 M1 PO (04:25)
[2020-09-06] MEDS ORDERED: LOSARTAN POTASS50 M1 PO (04:26)
[2020-09-06] MEDS ORDERED: LEVETIRACETAM500 MG PO (04:26)
[2020-09-06] MEDS ORDERED: MULTIVITAMINS1 EAC6 PO (04:26)
[2020-09-06 06:48] LABS: BASO % 0.4 % (0.0-1.0); EOS # 0.1 10*3/uL (0.0-0.4); EOS % 0.9 % (1.0-4.0); HEMATOCRIT 35.7 % (42.0-52.0); LYMPH # 1.2 10*3/uL (1.3-4.4); LYMPH % 14.4 % (27.0-41.0); MEAN CELL VOLUME 104.4 fl (80.0-94.0); MEAN CORPUSCULAR HGB 36.5 pg (27.0-31.0); MEAN PLATELET VOLUME 10.8 fl (9.6-12.3); MONO # 0.6 10*3/uL (0.1-1.0); MONO % 7.9 % (3.0-9.0); NEUT # 6.1 10*3/uL (2.3-7.9); NEUT % 75.9 % (47.0-73.0); PLATELET COUNT AUTOMATED 141 10*3/uL (130-400); RED BLOOD COUNT 3.42 10*6/uL (4.50-5.90); RED CELL DISTRI WIDTH 12.5 % (0-14.5)
[2020-09-06 07:08] LABS: ALBUMIN 2.6 gm/dl (3.1-4.5); ALKALINE PHOSPHATASE 470 U/L (45-117); BUN 1 mg/dl (7-24); CHLORIDE 97 mmol/L (98-107); CHOLESTEROL 152 mg/dL (<200); CREATININE 0.58 mg/dL (0.70-1.30); HDL CHOLESTEROL 17 mg/dl (40-60); LDL CHOLESTEROL 98 mg/dL (9-159); POTASSIUM 3.3 mmol/L (3.5-5.1); SGOT/AST 103 IU/L (3-35); SGPT/ALT 31 U/L (12-78); SODIUM 130 mmol/L (136-145); TRIGLYCERIDES 183 mg/dl (<150); VLDL CHOLESTEROL 37 mg/dL (6-40)
[2020-09-07] VITALS: BP 115/68
[2020-09-07 06:45] LABS: BUN 4 mg/dl (7-24); CHLORIDE 103 mmol/L (98-107); CREATININE 0.53 mg/dL (0.70-1.30); POTASSIUM 3.5 mmol/L (3.5-5.1); SODIUM 133 mmol/L (136-145)
[2020-09-07 08:00] VITALS: BP 128/62
[2020-09-07] MEDS ORDERED: CIPRO500 MG PO (12:32)
[2020-09-07] MEDS ORDERED: VITAMIN B-1100 M1 PO (12:32)
[2020-09-07] MEDS ORDERED: NATURE'S BLEND F1 MG PO (12:32)
[2020-09-07] MEDS ORDERED: BACITRACIN ZINC14 GM T (12:32)
[2020-09-07] MEDS ORDERED: VITAMIN D250 MCG PO (12:32)
== END 2020-09-07 13:20 | disposition home or self-care (01) ==
LOC: ED 22:49 → EDHOLD 09-06 01:51 → 5E 09-06 01:51
PROVIDERS: Internal Medicine; ADMIT Family Medicine; ATTEND Family Medicine
DX: G40.909 Epilepsy, unspecified, not intractable, without status epilepticus (principal); N39.0 Urinary tract infection, site not specified; E87.1 Hypo-osmolality and hyponatremia; E87.6 Hypokalemia; E87.8 Other disorders of electrolyte and fluid balance, not elsewhere classified; I16.1 Hypertensive emergency; I10 Essential (primary) hypertension; E43 Unspecified severe protein-calorie malnutrition; R73.9 Hyperglycemia, unspecified; R74.01 Elevation of levels of liver transaminase levels; R00.0 Tachycardia, unspecified; D75.89 Other specified diseases of blood and blood-forming organs; F10.10 Alcohol abuse, uncomplicated; F17.210 Nicotine dependence, cigarettes, uncomplicated; Z79.899 Other long term (current) drug therapy

== ENCOUNTER → 2020-09-27 | Outpatient (CLI) | payer OTHER ==
[~2020-09-27] MED LIST changes: +BACITRACIN ZINC14 GM T; +CIPRO500 MG PO; +LOSARTAN POTASS50 M1 PO; +MULTIVITAMINS1 EAC6 PO; +VITAMIN B-1100 M1 PO; +VITAMIN D250 MCG PO
== END | disposition home or self-care (01) ==
LOC: RESCLI 03:28
PROVIDERS: ATTEND Internal Medicine Nephrology
DX: E78.1 Pure hyperglyceridemia (principal); R56.9 Unspecified convulsions; I10 Essential (primary) hypertension; F10.10 Alcohol abuse, uncomplicated; F17.210 Nicotine dependence, cigarettes, uncomplicated; Z98.890 Other specified postprocedural states

== ENCOUNTER 2020-11-23 13:26 | Emergency (ER) | payer OTHER ==
[~2020-11-23] VITALS: Ht 175.2 cm; Wt 68.9 kg
[2020-11-23 14:28] LABS: HEMATOCRIT 37.6 % (42.0-52.0); MEAN CELL VOLUME 99.2 fl (80.0-94.0); MEAN CORPUSCULAR HGB 36.4 pg (27.0-31.0); MEAN CORPUSCULAR HGB CONC 36.7 g/dl (33.0-37.0); MEAN PLATELET VOLUME 10.8 fl (9.6-12.3); RED BLOOD COUNT 3.79 10*6/uL (4.50-5.90); RED CELL DISTRI WIDTH 13.2 % (0-14.5); WHITE BLOOD COUNT 9.6 10*3/uL (4.8-10.8)
[2020-11-23 14:48] LABS: ALBUMIN 2.2 gm/dl (3.1-4.5); ALKALINE PHOSPHATASE 515 U/L (45-117); BUN 2 mg/dl (7-24); CHLORIDE 75 mmol/L (98-107); CREATININE 0.44 mg/dL (0.70-1.30); POTASSIUM 2.6 mmol/L (3.5-5.1); SGOT/AST 139 IU/L (3-35); SGPT/ALT 33 U/L (12-78); TOTAL PROTEIN 7.1 gm/dL (6.4-8.2)
[2020-11-23 14:49] LABS: PLATELET COUNT AUTOMATED 119 10*3/uL (130-400)
[2020-11-23 14:52] LABS: BURR CELLS FEW; PLATELET SUFFICIENCY LOW (NORMAL); TOTAL CELLS COUNTED 100 #CELLS
[2020-11-23 14:53] LABS: SODIUM 110 mmol/L (136-145)
[2020-11-23 16:17] LABS: BILIRUBIN 3+ (Negative); BLOOD Negative (Negative); CLARITY Clear (Clear); COLOR Orange (Yellow); GLUCOSE Negative (Negative); KETONE Negative (Negative); LEUKO ESTERASE 1+ (Negative); NITRITE Positive (Negative); PH 5.5 (4.5-8.0); SPECIFIC GRAVITY 1.025 (1.001-1.030)
[2020-11-23 16:27] LABS: BACTERIA 1+
[2020-11-23 16:28] LABS: MUCOUS 4+
== END 2020-11-23 19:57 | disposition short-term general hospital (02) ==
LOC: ED 13:26
PROVIDERS: Student in an Organized Health Care Education/Training Program
DX: E87.1 Hypo-osmolality and hyponatremia (principal); Z79.899 Other long term (current) drug therapy

== ENCOUNTER 2021-02-04 17:57 | Inpatient (IN) | payer OTHER ==
[~2021-02-04] VITALS: Ht 175.2 cm; Wt 85.8 kg
[2021-02-04 17:58] VITALS: BP 162/115
[2021-02-04 19:01] LABS: BASO # 0.1 10*3/uL (0.0-0.1); BASO % 0.6 % (0.0-1.0); EOS # 0.2 10*3/uL (0.0-0.4); EOS % 1.9 % (1.0-4.0); HEMATOCRIT 38.6 % (42.0-52.0); LYMPH # 1.3 10*3/uL (1.3-4.4); MEAN CORPUSCULAR HGB 31.6 pg (27.0-31.0); MEAN CORPUSCULAR HGB CONC 34.7 g/dl (33.0-37.0); MEAN PLATELET VOLUME 9.4 fl (9.6-12.3); MONO # 0.6 10*3/uL (0.1-1.0); MONO % 7.7 % (3.0-9.0); NEUT # 5.6 10*3/uL (2.3-7.9); NEUT % 72.5 % (47.0-73.0); PLATELET COUNT AUTOMATED 281 10*3/uL (130-400); RED BLOOD COUNT 4.24 10*6/uL (4.50-5.90); RED CELL DISTRI WIDTH 13.1 % (0-14.5); WHITE BLOOD COUNT 7.8 10*3/uL (4.8-10.8)
[2021-02-04 19:05] VITALS: BP 140/108
[2021-02-04 19:17] LABS: ALBUMIN 2.1 gm/dl (3.1-4.5); ALKALINE PHOSPHATASE 163 U/L (45-117); BUN 8 mg/dl (7-24); CHLORIDE 96 mmol/L (98-107); CREATININE 0.52 mg/dL (0.70-1.30); LIPASE 136 U/L (73-393); POTASSIUM 3.7 mmol/L (3.5-5.1); SGOT/AST 28 IU/L (3-35); SGPT/ALT 14 U/L (12-78); SODIUM 127 mmol/L (136-145); TOTAL PROTEIN 6.9 gm/dL (6.4-8.2)
[2021-02-04 19:24] LABS: INTERNATIONAL NORM RATIO 1.3 (2.0-3.5)
[2021-02-04 19:54] LABS: BILIRUBIN 1+ (Negative); BLOOD Negative (Negative); CLARITY Cloudy (Clear); COLOR Orange (Yellow); GLUCOSE Negative (Negative); KETONE Trace (Negative); LEUKO ESTERASE Trace (Negative); NITRITE Positive (Negative); PH 5.5 (4.5-8.0); SPECIFIC GRAVITY >= 1.030 (1.001-1.030)
[2021-02-04 20:02] LABS: BACTERIA 2+; FINE GRANULAR CAST 21-30; MUCOUS 2+
[2021-02-05 04:16] VITALS: BP 150/108
[2021-02-05 04:36] LABS: HEMATOCRIT 34.9 % (42.0-52.0); MEAN CELL VOLUME 91.6 fl (80.0-94.0); MEAN CORPUSCULAR HGB 31.5 pg (27.0-31.0); MEAN CORPUSCULAR HGB CONC 34.4 g/dl (33.0-37.0); MEAN PLATELET VOLUME 9.3 fl (9.6-12.3); PLATELET COUNT AUTOMATED 270 10*3/uL (130-400); RED BLOOD COUNT 3.81 10*6/uL (4.50-5.90); RED CELL DISTRI WIDTH 13.1 % (0-14.5); WHITE BLOOD COUNT 6.1 10*3/uL (4.8-10.8)
[2021-02-05 04:53] LABS: ALBUMIN 1.9 gm/dl (3.1-4.5); ALKALINE PHOSPHATASE 146 U/L (45-117); BUN 8 mg/dl (7-24); CHLORIDE 96 mmol/L (98-107); CREATININE 0.41 mg/dL (0.70-1.30); POTASSIUM 4.4 mmol/L (3.5-5.1); SGOT/AST 24 IU/L (3-35); SGPT/ALT 12 U/L (12-78); SODIUM 126 mmol/L (136-145); TOTAL PROTEIN 6.2 gm/dL (6.4-8.2)
[2021-02-05 04:54] LABS: PLATELET SUFFICIENCY NORMAL (NORMAL); TOTAL CELLS COUNTED 100 #CELLS
[2021-02-05 06:02] VITALS: BP 145/101
[2021-02-05 09:20] VITALS: BP 141/107
[2021-02-05 17:45] VITALS: BP 128/89
[2021-02-05 20:00] VITALS: BP 115/82
[2021-02-05 20:05] LABS: BODY FLUID WBC 34 /uL
[2021-02-05 21:06] LABS: BF LYMPHOCYTES 19 %; BF MACROPHAGES 71 %; BF MESOTHELIALS 5 %; BF NEUTROPHILS 4 %
[2021-02-06] VITALS: BP 114/76
[2021-02-06 06:39] LABS: HEMATOCRIT 29.8 % (42.0-52.0); MEAN CORPUSCULAR HGB 31.8 pg (27.0-31.0); MEAN CORPUSCULAR HGB CONC 34.6 g/dl (33.0-37.0); MEAN PLATELET VOLUME 9.9 fl (9.6-12.3); PLATELET COUNT AUTOMATED 229 10*3/uL (130-400); RED BLOOD COUNT 3.24 10*6/uL (4.50-5.90); WHITE BLOOD COUNT 4.9 10*3/uL (4.8-10.8)
[2021-02-06 06:49] LABS: ALKALINE PHOSPHATASE 97 U/L (45-117); BUN 7 mg/dl (7-24); CHLORIDE 98 mmol/L (98-107); CREATININE 0.47 mg/dL (0.70-1.30); SGOT/AST 17 IU/L (3-35); SGPT/ALT 8 U/L (12-78); SODIUM 131 mmol/L (136-145); TOTAL PROTEIN 5.2 gm/dL (6.4-8.2)
[2021-02-06 07:02] LABS: POTASSIUM 2.8 mmol/L (3.5-5.1)
[2021-02-06 07:11] LABS: PLATELET SUFFICIENCY NORMAL (NORMAL); TOTAL CELLS COUNTED 100 #CELLS
[2021-02-06 08:00] VITALS: BP 92/59
[2021-02-06 12:00] VITALS: BP 104/60
[2021-02-06 16:00] VITALS: BP 108/71
[2021-02-06 20:00] VITALS: BP 105/74
[2021-02-07] VITALS: BP 109/74
[2021-02-07 06:11] LABS: ALBUMIN 1.9 gm/dl (3.1-4.5); ALKALINE PHOSPHATASE 96 U/L (45-117); BUN 6 mg/dl (7-24); CHLORIDE 96 mmol/L (98-107); CREATININE 0.45 mg/dL (0.70-1.30); POTASSIUM 3.3 mmol/L (3.5-5.1); SGOT/AST 20 IU/L (3-35); SGPT/ALT 10 U/L (12-78); SODIUM 130 mmol/L (136-145); TOTAL PROTEIN 5.2 gm/dL (6.4-8.2)
[2021-02-07 08:00] VITALS: BP 105/71
[2021-02-07 10:07] LABS: ACID FAST SPEC PROCESSING Direct Inoculation (.)
[2021-02-07 12:00] VITALS: BP 104/68
[2021-02-07 16:00] VITALS: BP 107/68
[2021-02-07 20:00] VITALS: BP 107/70
[2021-02-08] VITALS: BP 109/65
[2021-02-08 07:56] LABS: ALKALINE PHOSPHATASE 94 U/L (45-117); BUN 5 mg/dl (7-24); CHLORIDE 97 mmol/L (98-107); CREATININE 0.36 mg/dL (0.70-1.30); POTASSIUM 3.7 mmol/L (3.5-5.1); SGOT/AST 26 IU/L (3-35); SGPT/ALT 10 U/L (12-78); SODIUM 132 mmol/L (136-145); TOTAL PROTEIN 5.4 gm/dL (6.4-8.2)
[2021-02-08 08:00] VITALS: BP 99/66
[2021-02-08 08:04] LABS: BASO # 0.1 10*3/uL (0.0-0.1); BASO % 0.9 % (0.0-1.0); EOS # 0.3 10*3/uL (0.0-0.4); EOS % 5.3 % (1.0-4.0); HEMATOCRIT 32.3 % (42.0-52.0); LYMPH # 1.5 10*3/uL (1.3-4.4); LYMPH % 28.7 % (27.0-41.0); MEAN CELL VOLUME 92.6 fl (80.0-94.0); MEAN CORPUSCULAR HGB 31.2 pg (27.0-31.0); MEAN CORPUSCULAR HGB CONC 33.7 g/dl (33.0-37.0); MEAN PLATELET VOLUME 10.2 fl (9.6-12.3); MONO # 0.6 10*3/uL (0.1-1.0); MONO % 11.9 % (3.0-9.0); NEUT # 2.8 10*3/uL (2.3-7.9); NEUT % 52.8 % (47.0-73.0); PLATELET COUNT AUTOMATED 237 10*3/uL (130-400); RED BLOOD COUNT 3.49 10*6/uL (4.50-5.90); RED CELL DISTRI WIDTH 13.2 % (0-14.5); WHITE BLOOD COUNT 5.3 10*3/uL (4.8-10.8)
[2021-02-08] MEDS ORDERED: PANTOPRAZOLE SO40 MG PO (11:49)
[2021-02-08] MEDS ORDERED: FUROSEMIDE40 MG PO (11:49)
[2021-02-08] MEDS ORDERED: SPIRONOLACTONE100 MG PO (11:49)
[2021-02-08 12:00] VITALS: BP 98/60
== END 2021-02-08 14:30 | disposition home or self-care (01) | DRG 280 ==
LOC: ED 17:57 → EDHOLD 22:36 → 4E 22:36
PROVIDERS: Family Medicine; Hospitalist; Internal Medicine; ADMIT Student in an Organized Health Care Education/Training Program; ATTEND Student in an Organized Health Care Education/Training Program
PROC: 0W9G3ZZ Drainage of Peritoneal Cavity, Percutaneous Approach (ICD-10-PCS; principal; 2021-02-05)
DX: K70.31 Alcoholic cirrhosis of liver with ascites (principal); D64.9 Anemia, unspecified; F17.210 Nicotine dependence, cigarettes, uncomplicated; E87.1 Hypo-osmolality and hyponatremia; E43 Unspecified severe protein-calorie malnutrition; E66.9 Obesity, unspecified; I10 Essential (primary) hypertension; E87.8 Other disorders of electrolyte and fluid balance, not elsewhere classified; F41.9 Anxiety disorder, unspecified; N39.0 Urinary tract infection, site not specified; E87.6 Hypokalemia; I16.0 Hypertensive urgency; G40.909 Epilepsy, unspecified, not intractable, without status epilepticus; E80.6 Other disorders of bilirubin metabolism; D68.9 Coagulation defect, unspecified; Z71.6 Tobacco abuse counseling; Z79.899 Other long term (current) drug therapy; Z82.49 Family history of ischemic heart disease and other diseases of the circulatory system; Z83.3 Family history of diabetes mellitus; Z68.27 Body mass index [BMI] 27.0-27.9, adult

== ENCOUNTER → 2021-02-21 | Outpatient (CLI) | payer OTHER ==
[~2021-02-21] MED LIST changes: +FUROSEMIDE40 MG PO; +PANTOPRAZOLE SO40 MG PO; +SPIRONOLACTONE100 MG PO
[2021-02-21 13:04] VITALS: BP 144/98
== END | disposition home or self-care (01) ==
LOC: EDSTATUS 11:00
PROVIDERS: ATTEND Student in an Organized Health Care Education/Training Program
DX: R18.8 Other ascites (principal); F41.9 Anxiety disorder, unspecified; G40.909 Epilepsy, unspecified, not intractable, without status epilepticus; F17.210 Nicotine dependence, cigarettes, uncomplicated; Z79.899 Other long term (current) drug therapy

== ENCOUNTER → 2021-02-27 | Outpatient (CLI) | payer OTHER | END | disposition home or self-care (01) | LOC: RESCLI 01:19 | PROVIDERS: ATTEND Internal Medicine | DX: R56.9 Unspecified convulsions (principal); I10 Essential (primary) hypertension; E78.1 Pure hyperglyceridemia; K70.31 Alcoholic cirrhosis of liver with ascites; F17.210 Nicotine dependence, cigarettes, uncomplicated; Z72.89 Other problems related to lifestyle; Z79.899 Other long term (current) drug therapy ==

== ENCOUNTER → 2021-03-01 | Outpatient (CLI) | payer OTHER ==
[2021-03-01 16:04] LABS: INTERNATIONAL NORM RATIO 1.1 (2.0-3.5)
[2021-03-02 17:06] LABS: APTT 27.1 sec (22.9-30.2)
== END | disposition home or self-care (01) ==
LOC: LAB 14:31
PROVIDERS: Internal Medicine; ATTEND Internal Medicine
DX: K70.31 Alcoholic cirrhosis of liver with ascites (principal)

== ENCOUNTER → 2021-03-07 | Outpatient (CLI) | payer OTHER | END | disposition home or self-care (01) | LOC: EDSTATUS 13:00 | PROVIDERS: ATTEND Student in an Organized Health Care Education/Training Program | DX: K74.60 Unspecified cirrhosis of liver (principal); R18.8 Other ascites ==

== ENCOUNTER → 2021-03-27 | Outpatient (CLI) | payer OTHER ==
[2021-03-27 13:30] LABS: ACT PARTIAL THROMBO TIME 28.7 SECONDS (20.0-32.1); INTERNATIONAL NORM RATIO 1.2 (2.0-3.5)
== END | disposition home or self-care (01) ==
LOC: LAB 00:19
PROVIDERS: Internal Medicine; ATTEND Internal Medicine
DX: K70.31 Alcoholic cirrhosis of liver with ascites (principal)

== ENCOUNTER → 2021-04-25 | Outpatient (CLI) | payer OTHER ==
[2021-04-25 12:21] LABS: ACT PARTIAL THROMBO TIME 28.9 SECONDS (20.0-32.1); INTERNATIONAL NORM RATIO 1.1 (2.0-3.5)
== END | disposition home or self-care (01) ==
LOC: LAB 11:25
PROVIDERS: Internal Medicine; ATTEND Family Medicine
DX: K70.31 Alcoholic cirrhosis of liver with ascites (principal)

== ENCOUNTER → 2021-05-03 | Outpatient (CLI) | payer OTHER | END | disposition home or self-care (01) | LOC: EDSTATUS 10:30 | PROVIDERS: ATTEND Student in an Organized Health Care Education/Training Program | DX: K70.31 Alcoholic cirrhosis of liver with ascites (principal) ==

== ENCOUNTER → 2021-05-22 | Outpatient (CLI) | payer OTHER ==
[2021-05-22 14:00] LABS: ACT PARTIAL THROMBO TIME 28.5 SECONDS (20.0-32.1); INTERNATIONAL NORM RATIO 1.1 (2.0-3.5)
== END | disposition home or self-care (01) ==
LOC: LAB 13:13
PROVIDERS: Internal Medicine; ATTEND Internal Medicine
DX: K70.31 Alcoholic cirrhosis of liver with ascites (principal)

== ENCOUNTER → 2021-06-08 | Outpatient (CLI) | payer OTHER | END | disposition home or self-care (01) | LOC: RESCLI 02:33 | PROVIDERS: ATTEND Internal Medicine | DX: K70.31 Alcoholic cirrhosis of liver with ascites (principal); E78.1 Pure hyperglyceridemia; I10 Essential (primary) hypertension; R56.9 Unspecified convulsions; Z79.899 Other long term (current) drug therapy ==

== ENCOUNTER → 2021-06-20 | Outpatient (CLI) | payer OTHER ==
[2021-06-20 11:36] LABS: BASO # 0.1 10*3/uL (0.0-0.1); BASO % 1.1 % (0.0-1.0); EOS # 0.4 10*3/uL (0.0-0.4); EOS % 4.5 % (1.0-4.0); HEMATOCRIT 38.6 % (42.0-52.0); LYMPH # 2.7 10*3/uL (1.3-4.4); MEAN CELL VOLUME 87.7 fl (80.0-94.0); MEAN CORPUSCULAR HGB 29.5 pg (27.0-31.0); MEAN CORPUSCULAR HGB CONC 33.7 g/dl (33.0-37.0); MEAN PLATELET VOLUME 10.5 fl (9.6-12.3); MONO # 0.6 10*3/uL (0.1-1.0); MONO % 7.1 % (3.0-9.0); NEUT # 4.6 10*3/uL (2.3-7.9); NEUT % 55.1 % (47.0-73.0); PLATELET COUNT AUTOMATED 230 10*3/uL (130-400); RED CELL DISTRI WIDTH 12.9 % (0-14.5); WHITE BLOOD COUNT 8.3 10*3/uL (4.8-10.8)
[2021-06-20 11:46] LABS: ACT PARTIAL THROMBO TIME 29.2 SECONDS (20.0-32.1); INTERNATIONAL NORM RATIO 1.1 (2.0-3.5)
[2021-06-20 11:56] LABS: ALBUMIN 3.6 gm/dl (3.1-4.5); ALKALINE PHOSPHATASE 117 U/L (45-117); BUN 9 mg/dl (7-24); CHLORIDE 103 mmol/L (98-107); CHOLESTEROL 154 mg/dL (<200); CREATININE 0.74 mg/dL (0.70-1.30); LDL CHOLESTEROL 93 mg/dL (9-159); POTASSIUM 4.5 mmol/L (3.5-5.1); SGOT/AST 25 IU/L (3-35); SGPT/ALT 26 U/L (12-78); SODIUM 132 mmol/L (136-145); TOTAL PROTEIN 7.8 gm/dL (6.4-8.2); TRIGLYCERIDES 169 mg/dl (<150)
== END | disposition home or self-care (01) ==
LOC: LAB 11:05
PROVIDERS: Internal Medicine; ATTEND Internal Medicine
DX: K70.31 Alcoholic cirrhosis of liver with ascites (principal)

== ENCOUNTER → 2021-07-17 | Outpatient (CLI) | payer OTHER ==
[2021-07-17 14:37] LABS: BASO # 0.1 10*3/uL (0.0-0.1); EOS # 0.3 10*3/uL (0.0-0.4); HEMATOCRIT 40.2 % (42.0-52.0); LYMPH # 2.4 10*3/uL (1.3-4.4); LYMPH % 30.1 % (27.0-41.0); MEAN CELL VOLUME 85.4 fl (80.0-94.0); MEAN CORPUSCULAR HGB 29.3 pg (27.0-31.0); MEAN CORPUSCULAR HGB CONC 34.3 g/dl (33.0-37.0); MONO # 0.6 10*3/uL (0.1-1.0); MONO % 7.8 % (3.0-9.0); NEUT # 4.5 10*3/uL (2.3-7.9); NEUT % 56.8 % (47.0-73.0); PLATELET COUNT AUTOMATED 230 10*3/uL (130-400); RED BLOOD COUNT 4.71 10*6/uL (4.50-5.90); RED CELL DISTRI WIDTH 12.9 % (0-14.5); WHITE BLOOD COUNT 7.9 10*3/uL (4.8-10.8)
[2021-07-17 14:51] LABS: INTERNATIONAL NORM RATIO 1.1 (2.0-3.5)
[2021-07-17 14:56] LABS: ALKALINE PHOSPHATASE 125 U/L (45-117); BUN 8 mg/dl (7-24); CHLORIDE 105 mmol/L (98-107); CREATININE 0.92 mg/dL (0.70-1.30); POTASSIUM 3.8 mmol/L (3.5-5.1); SGOT/AST 22 IU/L (3-35); SGPT/ALT 26 U/L (12-78); SODIUM 134 mmol/L (136-145); TOTAL PROTEIN 8.2 gm/dL (6.4-8.2)
[2021-07-18 08:08] LABS: HEPATITIS B SURFACE AG Negative (Negative)
== END ==
LOC: LAB 13:59
PROVIDERS: Internal Medicine; Student in an Organized Health Care Education/Training Program; ATTEND Internal Medicine
DX: K70.31 Alcoholic cirrhosis of liver with ascites (principal)

== ENCOUNTER → 2021-08-15 | Outpatient (CLI) | payer OTHER ==
[2021-08-15 12:56] LABS: ACT PARTIAL THROMBO TIME 30.4 SECONDS (20.0-32.1)
== END | disposition home or self-care (01) ==
LOC: LAB 11:48
PROVIDERS: Internal Medicine; ATTEND Internal Medicine
DX: K70.31 Alcoholic cirrhosis of liver with ascites (principal)

== ENCOUNTER → 2021-11-09 | Outpatient (CLI) | payer OTHER ==
[2021-11-09 11:55] LABS: BASO # 0.1 10*3/uL (0.0-0.1); BASO % 0.6 % (0.0-1.0); EOS # 0.3 10*3/uL (0.0-0.4); EOS % 2.7 % (1.0-4.0); HEMATOCRIT 41.2 % (42.0-52.0); LYMPH # 2.5 10*3/uL (1.3-4.4); LYMPH % 24.7 % (27.0-41.0); MEAN CELL VOLUME 82.4 fl (80.0-94.0); MEAN CORPUSCULAR HGB 28.8 pg (27.0-31.0); MEAN PLATELET VOLUME 10.7 fl (9.6-12.3); MONO # 0.7 10*3/uL (0.1-1.0); MONO % 6.6 % (3.0-9.0); NEUT # 6.6 10*3/uL (2.3-7.9); PLATELET COUNT AUTOMATED 199 10*3/uL (130-400); RED CELL DISTRI WIDTH 13.3 % (0-14.5); WHITE BLOOD COUNT 10.1 10*3/uL (4.8-10.8)
[2021-11-09 12:30] LABS: ALKALINE PHOSPHATASE 125 U/L (45-117); BUN 14 mg/dl (7-24); CHLORIDE 107 mmol/L (98-107); CHOLESTEROL 171 mg/dL (<200); CREATININE 0.99 mg/dL (0.70-1.30); LDL CHOLESTEROL 106 mg/dL (9-159); POTASSIUM 4.1 mmol/L (3.5-5.1); SGOT/AST 22 IU/L (3-35); SGPT/ALT 24 U/L (12-78); SODIUM 138 mmol/L (136-145); TOTAL PROTEIN 7.8 gm/dL (6.4-8.2); TRIGLYCERIDES 188 mg/dl (<150)
== END | disposition home or self-care (01) ==
LOC: LAB 11:35
PROVIDERS: ATTEND Family Medicine
DX: Z13.6 Encounter for screening for cardiovascular disorders (principal); R63.4 Abnormal weight loss; I10 Essential (primary) hypertension; Z13.1 Encounter for screening for diabetes mellitus; Z79.899 Other long term (current) drug therapy

== ENCOUNTER → 2021-11-14 | Outpatient (CLI) | payer OTHER | END | disposition home or self-care (01) | LOC: US 12:52 | PROVIDERS: ATTEND Family Medicine | DX: K40.90 Unilateral inguinal hernia, without obstruction or gangrene, not specified as recurrent (principal) ==

== ENCOUNTER → 2022-02-04 | Outpatient (CLI) | payer OTHER ==
[2022-02-04 09:35] LABS: CHOLESTEROL 170 mg/dL (<200); LDL CHOLESTEROL 89 mg/dL (9-159); TRIGLYCERIDES 271 mg/dl (<150)
== END | disposition home or self-care (01) ==
LOC: LAB 08:49
PROVIDERS: ATTEND Family Medicine
DX: E78.2 Mixed hyperlipidemia (principal)

== ENCOUNTER → 2022-03-13 | Outpatient (CLI) | payer OTHER ==
[2022-03-13 16:13] LABS: ALKALINE PHOSPHATASE 107 U/L (45-117); BUN 7 mg/dl (7-24); CHLORIDE 99 mmol/L (98-107); CREATININE 0.74 mg/dL (0.70-1.30); POTASSIUM 3.9 mmol/L (3.5-5.1); SGOT/AST 19 IU/L (3-35); SGPT/ALT 28 U/L (12-78); SODIUM 132 mmol/L (136-145); TOTAL PROTEIN 7.8 gm/dL (6.4-8.2)
[2022-03-13 16:25] LABS: BASO # 0.1 10*3/uL (0.0-0.1); BASO % 0.9 % (0.0-1.0); EOS # 0.3 10*3/uL (0.0-0.4); EOS % 2.7 % (1.0-4.0); HEMATOCRIT 39.4 % (42.0-52.0); LYMPH # 3.1 10*3/uL (1.3-4.4); LYMPH % 32.8 % (27.0-41.0); MEAN CELL VOLUME 84.4 fl (80.0-94.0); MEAN CORPUSCULAR HGB CONC 36.8 g/dl (33.0-37.0); MEAN PLATELET VOLUME 10.6 fl (9.6-12.3); MONO # 0.6 10*3/uL (0.1-1.0); MONO % 6.2 % (3.0-9.0); NEUT # 5.3 10*3/uL (2.3-7.9); PLATELET COUNT AUTOMATED 249 10*3/uL (130-400); RED BLOOD COUNT 4.67 10*6/uL (4.50-5.90); RED CELL DISTRI WIDTH 12.8 % (0-14.5); WHITE BLOOD COUNT 9.3 10*3/uL (4.8-10.8)
== END | disposition home or self-care (01) ==
LOC: LAB 14:57
PROVIDERS: ATTEND Nurse Practitioner Family
DX: K70.31 Alcoholic cirrhosis of liver with ascites (principal)

== ENCOUNTER → 2023-03-24 | Outpatient (CLI) | payer OTHER ==
[2023-03-24 12:01] LABS: HEMATOCRIT 46.3 % (42.0-52.0); MEAN CELL VOLUME 96.5 fl (80.0-94.0); MEAN CORPUSCULAR HGB CONC 36.3 g/dl (33.0-37.0); MEAN PLATELET VOLUME 9.7 fl (9.6-12.3); RED BLOOD COUNT 4.8 10*6/uL (4.50-5.90); WHITE BLOOD COUNT 4.8 10*3/uL (4.8-10.8)
[2023-03-24 12:12] LABS: INTERNATIONAL NORM RATIO 1.1 (2.0-3.5)
[2023-03-24 12:23] LABS: ALKALINE PHOSPHATASE 116 U/L (46-116); CHLORIDE 93 mmol/L (98-107); CHOLESTEROL 196 mg/dL (<200); LDL CHOLESTEROL 77 mg/dL (9-159); POTASSIUM 3.3 mmol/L (3.4-5.1); SGPT/ALT 37 U/L (5-49); TOTAL PROTEIN 7.3 gm/dL (6.0-8.0); TRIGLYCERIDES 271 mg/dl (<150)
[2023-03-24 12:24] LABS: BUN < 5 mg/dl (9-23)
== END | disposition home or self-care (01) ==
LOC: LAB 11:37
PROVIDERS: ATTEND Nurse Practitioner Family
DX: I10 Essential (primary) hypertension (principal); K70.31 Alcoholic cirrhosis of liver with ascites

== ENCOUNTER 2024-01-06 16:40 | Inpatient (IN) | payer OTHER ==
[~2024-01-06] VITALS: Ht 175.3 cm; Wt 70.3 kg
[~2024-01-06 16:40] MED LIST changes: +KRISTALOSE20 GM PO; +NORVASC5 MG PO
[2024-01-06 16:50] VITALS: BP 132/84
[2024-01-06] MEDS ORDERED: SODIUM CHLORIDE 0.9% 1,000 ML IV ONE ×2 (16:50→20:15)
[2024-01-06 17:42] LABS: ACT PARTIAL THROMBO TIME 29.9 SECONDS (20.0-32.1)
[2024-01-06 17:47] LABS: HEMATOCRIT 45.3 % (42.0-52.0); MEAN CELL VOLUME 88.8 fl (80.0-94.0); MEAN CORPUSCULAR HGB 34.1 pg (27.0-31.0); MEAN PLATELET VOLUME 10.7 fl (9.6-12.3); PLATELET COUNT AUTOMATED 108 10*3/uL (130-400); RED CELL DISTRI WIDTH 14.7 % (0-14.5); WHITE BLOOD COUNT 9.4 10*3/uL (4.8-10.8)
[2024-01-06 17:57] LABS: MEAN CORPUSCULAR HGB CONC 38.4 g/dl (33.0-37.0)
[2024-01-06 17:58] LABS: MANUAL DIFF REFLEX YES
[2024-01-06 18:00] LABS: PLATELET SUFFICIENCY NORMAL (NORMAL); TOTAL CELLS COUNTED 100 #CELLS
[2024-01-06 18:02] LABS: ALKALINE PHOSPHATASE 243 U/L (46-116); CHLORIDE 79 mmol/L (98-107); CPK 306 U/L (34-171); LIPASE 28 U/L (12-53); POTASSIUM 3.3 mmol/L (3.4-5.1); SGPT/ALT 49 U/L (5-49); TOTAL PROTEIN 7.5 gm/dL (6.0-8.0)
[2024-01-06 18:10] LABS: BILIRUBIN Negative (Negative); BLOOD Negative (Negative); CLARITY Clear (Clear); COLOR Orange (Yellow); GLUCOSE Trace (Negative); KETONE Trace (Negative); LEUKO ESTERASE Negative (Negative); NITRITE Negative (Negative); SPECIFIC GRAVITY 1.015 (1.001-1.030)
[2024-01-06 18:18] LABS: BUN < 5 mg/dl (9-23)
[2024-01-06 18:20] LABS: URINE AMPHETAMINES Negative (1000ng/ml); URINE BARBITURATES Negative (200ng/ml); URINE BENZODIAZEPINES Positive (200ng/ml); URINE CANNABINOIDS (THC) Negative (50ng/ml); URINE COCAINE Negative (300ng/ml); URINE METHADONE Negative (300ng/ml); URINE OPIATES Negative (300ng/ml); URINE PHENCYCLIDINE Negative (25ng/ml)
[2024-01-06 18:20] LABS: ETHYL ALCOHOL < 3.0 mg/dl (<3)
[2024-01-06 18:23] LABS: BACTERIA 2+; MUCOUS 1+
[2024-01-06 18:24] VITALS: BP 134/90
[2024-01-06] MEDS ORDERED: Midazolam Hydrochloride 5 MG/5 ML VIAL IV ONE ×2 (19:45→22:50)
[2024-01-06] MEDS ORDERED: Ceftriaxone Sodium 1 GM/10 ML SYR IV ONE (19:50)
[2024-01-06 19:51] VITALS: BP 146/104
[2024-01-06 20:48] VITALS: BP 158/87
[2024-01-06 21:04] LABS: BUN 7 mg/dl (9-23); CHLORIDE 83 mmol/L (98-107); POTASSIUM 3.3 mmol/L (3.4-5.1)
[2024-01-06 22:32] VITALS: BP 141/96
[2024-01-06 22:49] VITALS: BP 143/87
[2024-01-06] MEDS ORDERED: Ondansetron Hydrochloride 4 MG/2 ML VIAL IV PRN (23:05)
[2024-01-06] MEDS ORDERED: BISACODYL 10 MG SUPP R PRN (23:05)
[2024-01-06] MEDS ORDERED: BISACODYL 5 MG TAB PO PRN (23:05)
[2024-01-06] MEDS ORDERED: Magnesium Hydroxide 30 ML UDC PO PRN (23:05)
[2024-01-06] MEDS ORDERED: Ketorolac Tromethamine 15 MG/ML VIAL IV PRN (23:10)
[2024-01-06] MEDS ORDERED: LORazepam 2 MG/ML VIAL IV PRN (23:25)
[2024-01-06] MEDS ORDERED: Water, Sterile 10 ML VIAL IV PRN (23:25)
[2024-01-06] MEDS ORDERED: hydrOXYzine 50 MG CAP PO PRN (23:25)
[2024-01-06] MEDS ORDERED: Dicyclomine Hydrochloride 20 MG TAB PO PRN (23:25)
[2024-01-06] MEDS ORDERED: METHOCARBAMOL 750 MG TAB PO PRN (23:25)
[2024-01-07] VITALS (9 sets, daily range): BP systolic 110–164; BP diastolic 69–106
[2024-01-07] MEDS ORDERED: AZITHROMYCIN 250 ML IV SCH (01:29)
[2024-01-07] MEDS ORDERED: DIAZEPAM 10 MG/2 ML SYR IV ONE (02:20)
[2024-01-07 02:25] LABS: BUN 6 mg/dl (9-23); CHLORIDE 86 mmol/L (98-107); POTASSIUM 3.1 mmol/L (3.4-5.1)
[2024-01-07] MEDS ORDERED: DEXMEDETOMIDINE IN 0.9 % NACL 100 ML IV SCH (03:45)
[2024-01-07] MEDS ORDERED: ERYTHROMYCIN 1 GM TUBE OPH SCH (06:00)
[2024-01-07 06:41] LABS: CHLORIDE 90 mmol/L (98-107); POTASSIUM 2.6 mmol/L (3.4-5.1)
[2024-01-07 06:43] LABS: BUN < 5 mg/dl (9-23)
[2024-01-07] MEDS ORDERED: POTASSIUM CHLORIDE IN WATER 100 ML IV SCH ×3 (07:00→20:00)
[2024-01-07] MEDS ORDERED: Lactated Ringer's Solution 1,000 ML IV SCH ×2 (09:35→16:30)
[2024-01-07] MEDS ORDERED: Thiamine 200 MG/2 ML VIAL IV SCH (10:00)
[2024-01-07] MEDS ORDERED: LEVETIRACETAM IN NACL (ISO-OS) 100 ML IV SCH (10:00)
[2024-01-07] MEDS ORDERED: Enoxaparin Sodium 40 MG/0.4 ML SYR SC SCH (10:00)
[2024-01-07 10:24] LABS: BUN 5 mg/dl (9-23); CHLORIDE 90 mmol/L (98-107); POTASSIUM 2.9 mmol/L (3.4-5.1)
[2024-01-07 14:31] LABS: BUN 5 mg/dl (9-23); CHLORIDE 95 mmol/L (98-107); POTASSIUM 2.9 mmol/L (3.4-5.1)
[2024-01-07] MEDS ORDERED: LACTULOSE 20 GM/30 ML UDC R ONE (15:35)
[2024-01-07] MEDS ORDERED: LACTULOSE 20 GM/30 ML UDC PO SCH (16:45)
[2024-01-07] MEDS ORDERED: PANTOPRAZOLE SO40 MG PO (17:34)
[2024-01-07] MEDS ORDERED: MULTIPLE VITAM1 EAC2 PO (17:35)
[2024-01-07] MEDS ORDERED: CO Q-10200 MG PO (17:36)
[2024-01-07 17:57] LABS: BUN 6 mg/dl (9-23); CHLORIDE 94 mmol/L (98-107); POTASSIUM 2.7 mmol/L (3.4-5.1)
[2024-01-07] MEDS ORDERED: amLODIPine besylate 5 MG TAB PO SCH (18:21)
[2024-01-07] MEDS ORDERED: LORazepam 1 MG TAB PO SCH ×3 (20:00)
[2024-01-07] MEDS ORDERED: Ceftriaxone Sodium 1 GM in SYRINGE INFUSION 10 ML IV SCH (22:00)
[2024-01-07 22:17] LABS: BUN 6 mg/dl (9-23); CHLORIDE 95 mmol/L (98-107); POTASSIUM 3.2 mmol/L (3.4-5.1)
[2024-01-08] VITALS: BP 158/105
[2024-01-08] MEDS ORDERED: LORazepam 1 MG TAB PO PRN
[2024-01-08 02:16] LABS: BUN 6 mg/dl (9-23); CHLORIDE 95 mmol/L (98-107); POTASSIUM 2.7 mmol/L (3.4-5.1)
[2024-01-08] MEDS ORDERED: POTASSIUM CHLORIDE IN WATER 100 ML IV SCH (03:00)
[2024-01-08 04:00] VITALS: BP 131/94
[2024-01-08 05:14] LABS: BUN 6 mg/dl (9-23); CHLORIDE 95 mmol/L (98-107); POTASSIUM 3.1 mmol/L (3.4-5.1)
[2024-01-08 07:10] LABS: BASO % 0.6 % (0.0-1.0); EOS # 0.1 10*3/uL (0.0-0.4); EOS % 1.5 % (1.0-4.0); HEMATOCRIT 38.2 % (42.0-52.0); LYMPH # 1.2 10*3/uL (1.3-4.4); LYMPH % 22.9 % (27.0-41.0); MEAN CORPUSCULAR HGB 34.1 pg (27.0-31.0); MEAN CORPUSCULAR HGB CONC 36.4 g/dl (33.0-37.0); MEAN PLATELET VOLUME 11.4 fl (9.6-12.3); MONO # 0.5 10*3/uL (0.1-1.0); MONO % 10.2 % (3.0-9.0); NEUT # 3.4 10*3/uL (2.3-7.9); NEUT % 64.2 % (47.0-73.0); PLATELET COUNT AUTOMATED 81 10*3/uL (130-400); RED BLOOD COUNT 4.08 10*6/uL (4.50-5.90); RED CELL DISTRI WIDTH 14.8 % (0-14.5); WHITE BLOOD COUNT 5.3 10*3/uL (4.8-10.8)
[2024-01-08 07:13] LABS: MEAN CELL VOLUME 93.6 fl (80.0-94.0)
[2024-01-08] MEDS ORDERED: MAGNESIUM SULFATE 50 ML IV ONE (07:25)
[2024-01-08 08:00] VITALS: BP 120/76
[2024-01-08] MEDS ORDERED: Lactated Ringer's Solution 1,000 ML IV ONE (10:45)
[2024-01-08 10:47] LABS: BUN 6 mg/dl (9-23); CHLORIDE 94 mmol/L (98-107); POTASSIUM 2.8 mmol/L (3.4-5.1)
[2024-01-08] MEDS ORDERED: POTASSIUM CHLORIDE 20 MEQ TAB PO ONE ×2 (11:05→14:35)
[2024-01-08 12:00] VITALS: BP 119/84
[2024-01-08] MEDS ORDERED: ERYTHROMYCIN 1 GM TUBE OPH SCH (14:00)
[2024-01-08 14:12] LABS: BUN 7 mg/dl (9-23); CHLORIDE 94 mmol/L (98-107); POTASSIUM 3.2 mmol/L (3.4-5.1)
[2024-01-08 16:00] VITALS: BP 124/85
[2024-01-08 19:01] LABS: BUN 6 mg/dl (9-23); CHLORIDE 98 mmol/L (98-107); POTASSIUM 3.4 mmol/L (3.4-5.1)
[2024-01-08 20:00] VITALS: BP 133/87
[2024-01-08] MEDS ORDERED: LORazepam 1 MG TAB PO SCH (22:00)
[2024-01-08 22:35] LABS: BUN 7 mg/dl (9-23); CHLORIDE 97 mmol/L (98-107); POTASSIUM 3.2 mmol/L (3.4-5.1)
[2024-01-09] VITALS: BP 119/77
[2024-01-09] MEDS ORDERED: LORazepam 1 MG TAB PO PRN
[2024-01-09] MEDS ORDERED: POTASSIUM CHLORIDE 20 MEQ TAB PO ONE ×3 (00:40→15:15)
[2024-01-09 02:12] LABS: CHLORIDE 99 mmol/L (98-107); POTASSIUM 3.2 mmol/L (3.4-5.1)
[2024-01-09 02:13] LABS: BUN < 5 mg/dl (9-23)
[2024-01-09 04:00] VITALS: BP 168/104
[2024-01-09] MEDS ORDERED: LORazepam 2 MG/ML VIAL IV PRN (04:45)
[2024-01-09 05:44] LABS: BUN 6 mg/dl (9-23); CHLORIDE 96 mmol/L (98-107); POTASSIUM 2.9 mmol/L (3.4-5.1)
[2024-01-09 06:09] LABS: BASO % 0.8 % (0.0-1.0); EOS # 0.1 10*3/uL (0.0-0.4); EOS % 1.8 % (1.0-4.0); HEMATOCRIT 35.2 % (42.0-52.0); LYMPH # 1.1 10*3/uL (1.3-4.4); LYMPH % 21.4 % (27.0-41.0); MEAN CELL VOLUME 96.2 fl (80.0-94.0); MEAN CORPUSCULAR HGB 34.4 pg (27.0-31.0); MEAN CORPUSCULAR HGB CONC 35.8 g/dl (33.0-37.0); MONO # 0.6 10*3/uL (0.1-1.0); MONO % 11.8 % (3.0-9.0); NEUT # 3.1 10*3/uL (2.3-7.9); NEUT % 63.8 % (47.0-73.0); RED BLOOD COUNT 3.66 10*6/uL (4.50-5.90); RED CELL DISTRI WIDTH 15.1 % (0-14.5); WHITE BLOOD COUNT 4.9 10*3/uL (4.8-10.8)
[2024-01-09 06:14] LABS: PLATELET COUNT AUTOMATED 108 10*3/uL (130-400)
[2024-01-09 08:00] VITALS: BP 145/103
[2024-01-09] MEDS ORDERED: POTASSIUM CHLORIDE 20 MEQ in Lactated Ringer's Solution 1,000 ML IV SCH (08:00)
[2024-01-09 10:34] LABS: CHLORIDE 97 mmol/L (98-107); POTASSIUM 2.9 mmol/L (3.4-5.1)
[2024-01-09 10:38] LABS: BUN < 5 mg/dl (9-23)
[2024-01-09 12:00] VITALS: BP 160/103
[2024-01-09] MEDS ORDERED: POTASSIUM CHLORIDE 20 MEQ TAB PO SCH (12:00)
[2024-01-09] MEDS ORDERED: LACTULOSE 20 GM/30 ML UDC PO SCH (14:00)
[2024-01-09 14:35] LABS: CHLORIDE 94 mmol/L (98-107); POTASSIUM 3.1 mmol/L (3.4-5.1)
[2024-01-09 14:41] LABS: BUN < 5 mg/dl (9-23)
[2024-01-09 16:00] VITALS: BP 166/107
[2024-01-09] MEDS ORDERED: SODIUM CHLORIDE 0.9% 1,000 ML IV ONE (16:50)
[2024-01-09 18:06] LABS: CHLORIDE 93 mmol/L (98-107); POTASSIUM 3.4 mmol/L (3.4-5.1)
[2024-01-09 18:09] LABS: BUN < 5 mg/dl (9-23)
[2024-01-09 20:00] VITALS: BP 171/119
[2024-01-09 22:36] LABS: BUN 5 mg/dl (9-23); CHLORIDE 90 mmol/L (98-107)
[2024-01-10] VITALS: BP 168/98
[2024-01-10 02:34] LABS: BUN 5 mg/dl (9-23); CHLORIDE 89 mmol/L (98-107); POTASSIUM 3.3 mmol/L (3.4-5.1)
[2024-01-10 04:00] VITALS: BP 158/107
[2024-01-10 05:44] LABS: CHLORIDE 90 mmol/L (98-107); POTASSIUM 3.1 mmol/L (3.4-5.1)
[2024-01-10 05:51] LABS: BUN < 5 mg/dl (9-23)
[2024-01-10] MEDS ORDERED: POTASSIUM CHLORIDE 20 MEQ TAB PO ONE (06:15)
[2024-01-10 06:32] LABS: BASO # 0.1 10*3/uL (0.0-0.1); BASO % 0.9 % (0.0-1.0); EOS # 0.1 10*3/uL (0.0-0.4); EOS % 2.2 % (1.0-4.0); HEMATOCRIT 35.5 % (42.0-52.0); LYMPH # 1.6 10*3/uL (1.3-4.4); LYMPH % 29.1 % (27.0-41.0); MEAN CELL VOLUME 93.7 fl (80.0-94.0); MEAN CORPUSCULAR HGB CONC 36.3 g/dl (33.0-37.0); MEAN PLATELET VOLUME 10.8 fl (9.6-12.3); MONO # 0.9 10*3/uL (0.1-1.0); MONO % 16.3 % (3.0-9.0); NEUT # 2.8 10*3/uL (2.3-7.9); RED BLOOD COUNT 3.79 10*6/uL (4.50-5.90); WHITE BLOOD COUNT 5.5 10*3/uL (4.8-10.8)
[2024-01-10 06:46] LABS: PLATELET COUNT AUTOMATED 141 10*3/uL (130-400)
[2024-01-10 08:00] VITALS: BP 167/109
[2024-01-10] MEDS ORDERED: SODIUM CHLORIDE 1 GM TAB PO SCH ×2 (10:00→14:00)
[2024-01-10 10:36] LABS: CHLORIDE 91 mmol/L (98-107)
[2024-01-10 10:46] LABS: BUN < 5 mg/dl (9-23)
[2024-01-10 12:00] VITALS: BP 169/102
[2024-01-10] MEDS ORDERED: MAGNESIUM SULFATE 50 ML IV ONE (12:50)
[2024-01-10] MEDS ORDERED: SODIUM CHLORIDE 0.9% 1,000 ML IV SCH (12:55)
[2024-01-10 15:28] LABS: BUN 6 mg/dl (9-23); CHLORIDE 90 mmol/L (98-107); POTASSIUM 3.4 mmol/L (3.4-5.1)
[2024-01-10 16:00] VITALS: BP 148/96
[2024-01-10 18:26] LABS: BUN 7 mg/dl (9-23); CHLORIDE 93 mmol/L (98-107); POTASSIUM 3.3 mmol/L (3.4-5.1)
[2024-01-10 20:00] VITALS: BP 154/106
[2024-01-10 21:15] LABS: BUN 5 mg/dl (9-23); CHLORIDE 92 mmol/L (98-107); POTASSIUM 3.4 mmol/L (3.4-5.1)
[2024-01-10] MEDS ORDERED: LACTULOSE 20 GM/30 ML UDC PO SCH (22:00)
[2024-01-11] VITALS: BP 148/115
[2024-01-11 00:57] LABS: BUN < 5 mg/dl (9-23); CHLORIDE 96 mmol/L (98-107); POTASSIUM 3.6 mmol/L (3.4-5.1)
[2024-01-11 05:47] LABS: CHLORIDE 95 mmol/L (98-107); POTASSIUM 3.5 mmol/L (3.4-5.1)
[2024-01-11 05:50] LABS: BUN < 5 mg/dl (9-23)
[2024-01-11 06:53] LABS: BASO # 0.1 10*3/uL (0.0-0.1); EOS # 0.1 10*3/uL (0.0-0.4); EOS % 2.5 % (1.0-4.0); HEMATOCRIT 35.3 % (42.0-52.0); LYMPH # 1.5 10*3/uL (1.3-4.4); LYMPH % 28.4 % (27.0-41.0); MEAN CELL VOLUME 96.7 fl (80.0-94.0); MEAN CORPUSCULAR HGB 34.5 pg (27.0-31.0); MEAN CORPUSCULAR HGB CONC 35.7 g/dl (33.0-37.0); MEAN PLATELET VOLUME 10.7 fl (9.6-12.3); MONO # 0.8 10*3/uL (0.1-1.0); MONO % 15.7 % (3.0-9.0); NEUT # 2.7 10*3/uL (2.3-7.9); NEUT % 51.8 % (47.0-73.0); PLATELET COUNT AUTOMATED 181 10*3/uL (130-400); RED BLOOD COUNT 3.65 10*6/uL (4.50-5.90); RED CELL DISTRI WIDTH 15.5 % (0-14.5); WHITE BLOOD COUNT 5.1 10*3/uL (4.8-10.8)
[2024-01-11 08:00] VITALS: BP 136/97
[2024-01-11 12:00] VITALS: BP 155/107
[2024-01-11 12:59] LABS: BUN < 5 mg/dl (9-23); CHLORIDE 98 mmol/L (98-107); POTASSIUM 3.5 mmol/L (3.4-5.1)
[2024-01-11 16:00] VITALS: BP 127/87
[2024-01-11 20:00] VITALS: BP 148/103
[2024-01-12] VITALS (7 sets, daily range): BP systolic 138–160; BP diastolic 90–106
[2024-01-12 04:22] LABS: BASO # 0.1 10*3/uL (0.0-0.1); BASO % 1.4 % (0.0-1.0); EOS # 0.2 10*3/uL (0.0-0.4); EOS % 3.7 % (1.0-4.0); HEMATOCRIT 33.3 % (42.0-52.0); LYMPH # 1.8 10*3/uL (1.3-4.4); LYMPH % 29.9 % (27.0-41.0); MEAN CELL VOLUME 97.1 fl (80.0-94.0); MEAN CORPUSCULAR HGB 34.4 pg (27.0-31.0); MEAN CORPUSCULAR HGB CONC 35.4 g/dl (33.0-37.0); MEAN PLATELET VOLUME 10.2 fl (9.6-12.3); MONO # 0.9 10*3/uL (0.1-1.0); MONO % 14.9 % (3.0-9.0); NEUT # 2.9 10*3/uL (2.3-7.9); NEUT % 49.6 % (47.0-73.0); PLATELET COUNT AUTOMATED 205 10*3/uL (130-400); RED BLOOD COUNT 3.43 10*6/uL (4.50-5.90); RED CELL DISTRI WIDTH 15.7 % (0-14.5); WHITE BLOOD COUNT 5.9 10*3/uL (4.8-10.8)
[2024-01-12 04:40] LABS: BUN 8 mg/dl (9-23); CHLORIDE 101 mmol/L (98-107); POTASSIUM 3.5 mmol/L (3.4-5.1)
[2024-01-12 12:34] LABS: BUN 8 mg/dl (9-23); CHLORIDE 100 mmol/L (98-107); POTASSIUM 3.4 mmol/L (3.4-5.1)
[2024-01-13 01:30] VITALS: BP 142/90
[2024-01-13 06:46] LABS: BUN 7 mg/dl (9-23); CHLORIDE 98 mmol/L (98-107)
[2024-01-13 08:00] VITALS: BP 157/95
[2024-01-13] MEDS ORDERED: POTASSIUM CHLORIDE 20 MEQ TAB PO ONE (08:05)
[2024-01-13] MEDS ORDERED: SODIUM CHLORIDE 0.9% 1,000 ML IV ONE (08:50)
[2024-01-13 12:00] VITALS: BP 154/100
[2024-01-13 12:28] LABS: BUN 8 mg/dl (9-23); CHLORIDE 98 mmol/L (98-107); POTASSIUM 3.5 mmol/L (3.4-5.1)
[2024-01-13 16:00] VITALS: BP 168/105
[2024-01-13 20:00] VITALS: BP 169/106
[2024-01-14] VITALS: BP 157/96
[2024-01-14 07:29] LABS: CHLORIDE 100 mmol/L (98-107)
[2024-01-14 07:31] LABS: BUN < 5 mg/dl (9-23)
[2024-01-14 08:00] VITALS: BP 134/88
[2024-01-14] MEDS ORDERED: POTASSIUM CHLORIDE 20 MEQ TAB PO ONE (08:05)
[2024-01-14 12:00] VITALS: BP 132/67
[2024-01-14] MEDS ORDERED: SODIUM CHLORI1000 M5 PO (14:24)
== END 2024-01-14 15:03 | disposition home or self-care (01) | DRG 720 ==
LOC: ED 16:40 → EDHOLD 21:53 → ICCU 21:53 → EDHOLD 01-07 15:11 → ICCU 01-07 15:45 → 4E 01-12 23:25
PROVIDERS: Emergency Medicine; Internal Medicine; Internal Medicine Nephrology; Nurse Practitioner Family; Student in an Organized Health Care Education/Training Program; ADMIT Student in an Organized Health Care Education/Training Program; ATTEND Student in an Organized Health Care Education/Training Program
DX: A41.9 Sepsis, unspecified organism (principal); J69.0 Pneumonitis due to inhalation of food and vomit; G93.41 Metabolic encephalopathy; F10.931 Alcohol use, unspecified with withdrawal delirium; E72.20 Disorder of urea cycle metabolism, unspecified; E87.1 Hypo-osmolality and hyponatremia; M62.82 Rhabdomyolysis; D69.6 Thrombocytopenia, unspecified; E87.6 Hypokalemia; K70.30 Alcoholic cirrhosis of liver without ascites; R74.01 Elevation of levels of liver transaminase levels; R65.20 Severe sepsis without septic shock; E80.6 Other disorders of bilirubin metabolism; F41.9 Anxiety disorder, unspecified; K76.0 Fatty (change of) liver, not elsewhere classified; H10.33 Unspecified acute conjunctivitis, bilateral; Z82.49 Family history of ischemic heart disease and other diseases of the circulatory system; Z83.3 Family history of diabetes mellitus

== ENCOUNTER → 2024-01-30 | Outpatient (CLI) | payer OTHER ==
[~2024-01-30] MED LIST changes: +CO Q-10200 MG PO; +MULTIPLE VITAM1 EAC2 PO; +SODIUM CHLORI1000 M5 PO
[2024-01-30 13:12] LABS: HEMATOCRIT 41.7 % (42.0-52.0); MEAN CELL VOLUME 98.6 fl (80.0-94.0); MEAN CORPUSCULAR HGB 33.1 pg (27.0-31.0); MEAN CORPUSCULAR HGB CONC 33.6 g/dl (33.0-37.0); MEAN PLATELET VOLUME 9.8 fl (9.6-12.3); RED BLOOD COUNT 4.23 10*6/uL (4.50-5.90); RED CELL DISTRI WIDTH 14.7 % (0-14.5); WHITE BLOOD COUNT 7.9 10*3/uL (4.8-10.8)
[2024-01-30 13:47] LABS: ALKALINE PHOSPHATASE 100 U/L (46-116); CHLORIDE 104 mmol/L (98-107); CHOLESTEROL 198 mg/dL (<200); FREE T4 1.01 ng/dl (0.89-1.76); LDL CHOLESTEROL 126 mg/dL (9-159); POTASSIUM 3.5 mmol/L (3.4-5.1); SGPT/ALT 14 U/L (5-49); TOTAL PROTEIN 6.9 gm/dL (6.0-8.0); TRIGLYCERIDES 198 mg/dl (<150)
[2024-01-30 13:59] LABS: BUN < 5 mg/dl (9-23)
[2024-01-30 14:17] LABS: VITAMIN D, 25-HYDROXY 27.3 ng/mL (30-100)
== END | disposition home or self-care (01) ==
LOC: LAB 12:50
PROVIDERS: Family Medicine; ATTEND Nurse Practitioner Family
DX: Z13.220 Encounter for screening for lipoid disorders (principal); R53.83 Other fatigue; E87.6 Hypokalemia; E87.1 Hypo-osmolality and hyponatremia

== ENCOUNTER → 2024-02-16 | Outpatient (CLI) | payer OTHER | END | disposition home or self-care (01) | LOC: US 02-10 07:30 | PROVIDERS: ATTEND Family Medicine | DX: K80.20 Calculus of gallbladder without cholecystitis without obstruction (principal); K74.60 Unspecified cirrhosis of liver; I10 Essential (primary) hypertension; K76.9 Liver disease, unspecified ==

== ENCOUNTER → 2024-04-20 | Outpatient (CLI) | payer OTHER ==
[2024-04-20 12:18] LABS: BASO # 0.1 10*3/uL (0.0-0.1); BASO % 0.4 % (0.0-1.0); EOS # 0.3 10*3/uL (0.0-0.4); EOS % 1.8 % (1.0-4.0); HEMATOCRIT 40.3 % (42.0-52.0); MEAN CELL VOLUME 90.6 fl (80.0-94.0); MEAN CORPUSCULAR HGB 29.9 pg (27.0-31.0); MEAN PLATELET VOLUME 10.1 fl (9.6-12.3); MONO # 0.8 10*3/uL (0.1-1.0); MONO % 4.8 % (3.0-9.0); NEUT # 12.7 10*3/uL (2.3-7.9); NEUT % 79.5 % (47.0-73.0); PLATELET COUNT AUTOMATED 261 10*3/uL (130-400); RED BLOOD COUNT 4.45 10*6/uL (4.50-5.90); RED CELL DISTRI WIDTH 11.9 % (0-14.5)
[2024-04-20 13:45] LABS: BUN 9 mg/dl (9-23); CHLORIDE 101 mmol/L (98-107); POTASSIUM 3.5 mmol/L (3.4-5.1)
== END | disposition home or self-care (01) ==
LOC: LAB 12:07
PROVIDERS: ATTEND Nurse Practitioner Family
DX: E87.6 Hypokalemia (principal); D64.9 Anemia, unspecified; E87.1 Hypo-osmolality and hyponatremia

== ENCOUNTER → 2024-06-08 | Outpatient (CLI) | payer OTHER ==
[2024-06-08 15:24] LABS: BUN 7 mg/dl (9-23); CHLORIDE 101 mmol/L (98-107); POTASSIUM 3.6 mmol/L (3.4-5.1)
== END | disposition home or self-care (01) ==
LOC: LAB 14:47
PROVIDERS: ATTEND Nurse Practitioner Family
DX: E87.1 Hypo-osmolality and hyponatremia (principal)

== ENCOUNTER → 2024-07-15 | Outpatient (CLI) | payer OTHER | END | disposition home or self-care (01) | LOC: US 07:24 | PROVIDERS: ATTEND Family Medicine | DX: K74.60 Unspecified cirrhosis of liver (principal); K80.20 Calculus of gallbladder without cholecystitis without obstruction; K76.0 Fatty (change of) liver, not elsewhere classified ==

== ENCOUNTER → 2024-10-14 | Outpatient (CLI) | payer OTHER ==
[2024-10-14 13:52] LABS: ALKALINE PHOSPHATASE 250 U/L (46-116); CHLORIDE 97 mmol/L (98-107); CHOLESTEROL 174 mg/dL (<200); POTASSIUM 3.4 mmol/L (3.4-5.1); SGPT/ALT 27 U/L (5-49); TOTAL PROTEIN 6.8 gm/dL (6.0-8.0); TRIGLYCERIDES 852 mg/dl (<150)
[2024-10-14 13:58] LABS: BUN < 5 mg/dl (9-23)
[2024-10-14 14:21] LABS: BASO # 0.1 10*3/uL (0.0-0.1); BASO % 0.7 % (0.0-1.0); EOS # 0.1 10*3/uL (0.0-0.4); EOS % 0.9 % (1.0-4.0); HEMATOCRIT 42.2 % (42.0-52.0); MEAN CELL VOLUME 98.8 fl (80.0-94.0); MEAN CORPUSCULAR HGB CONC 37.4 g/dl (33.0-37.0); MEAN PLATELET VOLUME 10.2 fl (9.6-12.3); MONO # 0.6 10*3/uL (0.1-1.0); MONO % 7.5 % (3.0-9.0); NEUT % 73.8 % (47.0-73.0); PLATELET COUNT AUTOMATED 210 10*3/uL (130-400); RED BLOOD COUNT 4.27 10*6/uL (4.50-5.90); RED CELL DISTRI WIDTH 14.4 % (0-14.5); WHITE BLOOD COUNT 8.1 10*3/uL (4.8-10.8)
== END | disposition home or self-care (01) ==
LOC: LAB 12:38
PROVIDERS: ATTEND Family Medicine
DX: E78.00 Pure hypercholesterolemia, unspecified (principal); R53.83 Other fatigue; K80.20 Calculus of gallbladder without cholecystitis without obstruction; K74.60 Unspecified cirrhosis of liver

== ENCOUNTER 2024-12-08 10:15 | Inpatient (IN) | payer OTHER ==
[~2024-12-08] VITALS: Ht 177.8 cm; Wt 68.9 kg
[2024-12-08] MEDS ORDERED: diazePAM 10 MG/2 ML SYR IV ONE (11:15)
[2024-12-08] MEDS ORDERED: SODIUM CHLORIDE 0.9% 1,000 ML IV ONE ×2 (11:15→13:55)
[2024-12-08 12:18] LABS: ACT PARTIAL THROMBO TIME 36.4 SECONDS (20.0-32.1)
[2024-12-08 12:31] LABS: CPK 61 U/L (34-171); SGPT/ALT 76 U/L (5-49)
[2024-12-08 12:38] LABS: BUN < 5 mg/dl (9-23); ETHYL ALCOHOL < 3.0 mg/dl (<3)
[2024-12-08 13:58] VITALS: BP 123/87
[2024-12-08] MEDS ORDERED: POTASSIUM CHLORIDE IN WATER 100 ML IV SCH (14:00)
[2024-12-08 14:11] LABS: MEAN CELL VOLUME 94.1 fl (80.0-94.0); MEAN CORPUSCULAR HGB 38.1 pg (27.0-31.0); MEAN PLATELET VOLUME 9.6 fl (9.6-12.3); NUCLEATED RED BLOOD CELL 0.0 % (0.0-0.0); NUCLEATED RED BLOOD CELL 0.0 10*3/uL (0.0-0.0); RED CELL DISTRI WIDTH 12.7 % (0-14.5)
[2024-12-08 14:16] LABS: BILIRUBIN Negative (Negative); BLOOD Negative (Negative); CLARITY Clear (Clear); COLOR Yellow (Yellow); KETONE Trace (Negative); LEUKO ESTERASE Negative (Negative); NITRITE Negative (Negative); PH 6.5 (4.5-8.0); SPECIFIC GRAVITY 1.010 (1.001-1.030); UROBILINOGEN 2.0 E.U./dl (0.0-1.0)
[2024-12-08 14:23] LABS: URINE AMPHETAMINES Negative (1000ng/ml); URINE BARBITURATES Negative (200ng/ml); URINE BENZODIAZEPINES Negative (200ng/ml); URINE CANNABINOIDS (THC) Negative (50ng/ml); URINE COCAINE Negative (300ng/ml); URINE METHADONE Negative (300ng/ml); URINE OPIATES Negative (300ng/ml); URINE PHENCYCLIDINE Negative (25ng/ml)
[2024-12-08 14:28] LABS: EPITHELIAL CELLS 0-2; RBC 0-2 rbc/hpf (0-2); WBC 0-2 wbc/hpf (0-5)
[2024-12-08 14:29] LABS: BACTERIA TRACE
[2024-12-08 14:50] LABS: MANUAL DIFF REFLEX YES
[2024-12-08 14:53] LABS: PLATELET COUNT AUTOMATED 79 10*3/uL (130-400)
[2024-12-08 15:10] LABS: BASOPHILS 1 % (0-1)
[2024-12-08 15:14] LABS: PLATELET SUFFICIENCY LOW (NORMAL)
[2024-12-08 17:40] VITALS: BP 133/95
[2024-12-08 18:24] LABS: SGPT/ALT 66 U/L (5-49)
[2024-12-08] MEDS ORDERED: POTASSIUM CHLORIDE 40 MEQ in Lactated Ringer's Solution 1,000 ML IV SCH (18:40)
[2024-12-08] MEDS ORDERED: MAGNESIUM SULFATE 100 ML IV ONE (18:40)
[2024-12-08] MEDS ORDERED: diazePAM 10 MG/2 ML SYR IV PRN (18:55)
[2024-12-08 18:57] LABS: BUN < 5 mg/dl (9-23)
[2024-12-08] MEDS ORDERED: DEXTROSE 5% 1,000 ML IV ONE (19:00)
[2024-12-08 20:00] VITALS: BP 124/80
[2024-12-08] MEDS ORDERED: SODIUM CHLORIDE 1 GM TAB PO SCH (22:00)
[2024-12-08] MEDS ORDERED: LEVETIRACETAM 500 MG TAB PO SCH (22:00)
[2024-12-08 22:34] LABS: BUN < 5 mg/dl (9-23); SGPT/ALT 62 U/L (5-49)
[2024-12-08] MEDS ORDERED: POTASSIUM CHLORIDE 20 MEQ TAB PO ONE (23:00)
[2024-12-09] VITALS: BP 101/63
[2024-12-09 02:32] LABS: BUN < 5 mg/dl (9-23); SGPT/ALT 58 U/L (5-49)
[2024-12-09] MEDS ORDERED: POTASSIUM CHLORIDE 40 MEQ in SODIUM CHLORIDE 0.9% 1,000 ML IV SCH (03:00)
[2024-12-09 04:00] VITALS: BP 104/77
[2024-12-09 06:47] LABS: BUN < 5 mg/dl (9-23); SGPT/ALT 58 U/L (5-49)
[2024-12-09 08:00] VITALS: BP 110/86; BP 169/75
[2024-12-09] MEDS ORDERED: POTASSIUM CHLORIDE 20 MEQ TAB PO ONE (08:45)
[2024-12-09] MEDS ORDERED: MAGNESIUM OXIDE 400 MG TAB PO SCH (10:00)
[2024-12-09] MEDS ORDERED: Thiamine 100 MG TAB PO SCH (10:00)
[2024-12-09 10:33] LABS: SGPT/ALT 60 U/L (5-49)
[2024-12-09 10:40] LABS: BUN < 5 mg/dl (9-23)
[2024-12-09] MEDS ORDERED: DEXTROSE 5% 1,000 ML IV ONE (10:55)
[2024-12-09 12:00] VITALS: BP 118/78
[2024-12-09 14:13] LABS: SGPT/ALT 60 U/L (5-49)
[2024-12-09 14:15] LABS: BUN < 5 mg/dl (9-23)
[2024-12-09] MEDS ORDERED: DEXTROSE 5% 1,000 ML IV SCH (15:15)
[2024-12-09 16:00] VITALS: BP 106/68
[2024-12-09 18:12] LABS: SGPT/ALT 52 U/L (5-49)
[2024-12-09 18:13] LABS: BUN < 5 mg/dl (9-23)
[2024-12-09 20:00] VITALS: BP 123/83
[2024-12-09 22:31] LABS: SGPT/ALT 53 U/L (5-49)
[2024-12-09 22:40] LABS: BUN < 5 mg/dl (9-23)
[2024-12-10 04:00] VITALS: BP 132/92
[2024-12-10 05:23] LABS: SGPT/ALT 51 U/L (5-49)
[2024-12-10 05:24] LABS: BUN < 5 mg/dl (9-23)
[2024-12-10 06:38] LABS: BASO # 0.0 10*3/uL (0.0-0.1); BASO % 0.9 % (0.0-1.0); EOS # 0.1 10*3/uL (0.0-0.4); EOS % 1.8 % (1.0-4.0); MEAN CORPUSCULAR HGB 37.2 pg (27.0-31.0); MEAN PLATELET VOLUME 10.7 fl (9.6-12.3); MONO # 0.5 10*3/uL (0.1-1.0); MONO % 11.0 % (3.0-9.0); NEUT # 2.3 10*3/uL (2.3-7.9); NEUT % 52.1 % (47.0-73.0); NUCLEATED RED BLOOD CELL 0.0 % (0.0-0.0); NUCLEATED RED BLOOD CELL 0.0 10*3/uL (0.0-0.0); PLATELET COUNT AUTOMATED 79 10*3/uL (130-400); RED CELL DISTRI WIDTH 12.5 % (0-14.5)
[2024-12-10 07:17] LABS: MEAN CELL VOLUME 102.8 fl (80.0-94.0)
[2024-12-10 08:00] VITALS: BP 141/91
[2024-12-10] MEDS ORDERED: POTASSIUM CHLORIDE 20 MEQ TAB PO SCH (08:00)
[2024-12-10] MEDS ORDERED: POTASSIUM CHLORIDE IV SCH (08:09)
[2024-12-10] MEDS ORDERED: DEXTROSE IV SCH (08:09)
[2024-12-10] MEDS ORDERED: POTASSIUM CHLO10 ME5 PO ×2 (08:36)
[2024-12-10] MEDS ORDERED: DEXTROSE 5% 1,000 ML IV SCH (09:05)
[2024-12-10] MEDS ORDERED: DEXTROSE 5% 1,000 ML IV ONE (10:15)
[2024-12-10 12:00] VITALS: BP 131/81
[2024-12-10 12:49] LABS: SGPT/ALT 55 U/L (5-49)
[2024-12-10 12:55] LABS: BUN < 5 mg/dl (9-23)
== END 2024-12-10 13:44 | disposition home or self-care (01) | DRG 426 ==
LOC: ED 10:15 → EDHOLD 15:12 → ICCU 15:12
PROVIDERS: Internal Medicine; Internal Medicine Nephrology; ADMIT Internal Medicine; ATTEND Internal Medicine
DX: E87.1 Hypo-osmolality and hyponatremia (principal); G93.41 Metabolic encephalopathy; M62.82 Rhabdomyolysis; F10.931 Alcohol use, unspecified with withdrawal delirium; E72.20 Disorder of urea cycle metabolism, unspecified; D69.6 Thrombocytopenia, unspecified; E87.6 Hypokalemia; R74.01 Elevation of levels of liver transaminase levels; G40.909 Epilepsy, unspecified, not intractable, without status epilepticus; E83.42 Hypomagnesemia; F41.9 Anxiety disorder, unspecified; K74.60 Unspecified cirrhosis of liver; E80.6 Other disorders of bilirubin metabolism; I10 Essential (primary) hypertension; Z79.899 Other long term (current) drug therapy; Z79.01 Long term (current) use of anticoagulants; Z79.2 Long term (current) use of antibiotics; Z87.891 Personal history of nicotine dependence; Z82.49 Family history of ischemic heart disease and other diseases of the circulatory system; Z83.438 Family history of other disorder of lipoprotein metabolism and other lipidemia; Z83.3 Family history of diabetes mellitus; Y90.0 Blood alcohol level of less than 20 mg/100 ml

== ENCOUNTER → 2025-01-22 | Outpatient (CLI) | payer OTHER ==
[~2025-01-22] MED LIST changes: +ALDACTONE25 M1 PO; +ALDACTONE25 MG PO; +BAYER BACK & B1 EACH PO; +CEFUROXIME250 MG PO; +DILTIAZEM 24HR180 MG PO; +DOXYCYCLINE MO100 MG PO; +FEROSUL325 M1 PO; +KEPPRA1000 MG PO; +KLOR-CON M2020 ME1 PO; +LEVOFLOXACIN750 M2 PO; +MAGNESIUM OXID400 MG PO; +MAGNESIUM500 MG PO; +METRONIDAZOLE500 M1 PO; +MILK THISTLE175 M2 PO; +MULTIVITAMIN200 MCG PO; +NORVASC10 MG PO; +OMEPRAZOLE40 MG PO; +POTASSIUM CHLO10 ME5 PO; +VISTARIL25 MG PO; +VITAMIN B-1100 M2 PO
[2025-01-22 09:59] LABS: BASO # 0.1 10*3/uL (0.0-0.1); BASO % 0.9 % (0.0-1.0); EOS # 0.3 10*3/uL (0.0-0.4); EOS % 3.0 % (1.0-4.0); MEAN CELL VOLUME 98.8 fl (80.0-94.0); MEAN CORPUSCULAR HGB 34.1 pg (27.0-31.0); MEAN PLATELET VOLUME 9.4 fl (9.6-12.3); MONO # 0.8 10*3/uL (0.1-1.0); MONO % 9.0 % (3.0-9.0); NEUT # 6.0 10*3/uL (2.3-7.9); NEUT % 65.5 % (47.0-73.0); NUCLEATED RED BLOOD CELL 0.0 % (0.0-0.0); NUCLEATED RED BLOOD CELL 0.0 10*3/uL (0.0-0.0); PLATELET COUNT AUTOMATED 327 10*3/uL (130-400); RED CELL DISTRI WIDTH 14.0 % (0-14.5)
[2025-01-22 10:38] LABS: SGPT/ALT 15 U/L (5-49)
[2025-01-22 10:40] LABS: BUN < 5 mg/dl (9-23)
== END | disposition home or self-care (01) ==
LOC: LAB 09:40
PROVIDERS: Internal Medicine Infectious Disease; ATTEND Internal Medicine
DX: K52.9 Noninfective gastroenteritis and colitis, unspecified (principal)

== ENCOUNTER → 2025-01-29 | Outpatient (CLI) | payer OTHER ==
[2025-01-29 10:18] LABS: MEAN CELL VOLUME 98.7 fl (80.0-94.0); MEAN CORPUSCULAR HGB 33.4 pg (27.0-31.0); MEAN PLATELET VOLUME 9.7 fl (9.6-12.3); NUCLEATED RED BLOOD CELL 0.0 % (0.0-0.0); NUCLEATED RED BLOOD CELL 0.0 10*3/uL (0.0-0.0); PLATELET COUNT AUTOMATED 375.0 10*3/uL (130-400); RED CELL DISTRI WIDTH 13.9 % (0-14.5)
[2025-01-29 10:40] LABS: SGPT/ALT 14 U/L (5-49)
[2025-01-29 10:41] LABS: BUN < 5 mg/dl (9-23)
[2025-01-29 11:33] LABS: VITAMIN D, 25-HYDROXY 33.0 ng/mL (30-100)
== END | disposition home or self-care (01) ==
LOC: LAB 09:44
PROVIDERS: ATTEND Family Medicine
DX: I10 Essential (primary) hypertension (principal); D64.9 Anemia, unspecified; E78.00 Pure hypercholesterolemia, unspecified; E55.9 Vitamin D deficiency, unspecified; R53.83 Other fatigue; E87.1 Hypo-osmolality and hyponatremia; D51.9 Vitamin B12 deficiency anemia, unspecified; F44.9 Dissociative and conversion disorder, unspecified; E03.9 Hypothyroidism, unspecified; E78.5 Hyperlipidemia, unspecified; D72.829 Elevated white blood cell count, unspecified

== ENCOUNTER → 2025-02-05 | Outpatient (CLI) | payer OTHER | END | disposition home or self-care (01) | LOC: LAB 09:29 → RAD 09:29 | PROVIDERS: ATTEND Family Medicine | DX: J43.9 Emphysema, unspecified (principal); E87.1 Hypo-osmolality and hyponatremia ==

== ENCOUNTER → 2025-04-27 | Outpatient (CLI) | payer OTHER ==
[2025-04-27 15:54] LABS: VITAMIN D, 25-HYDROXY 30.5 ng/mL (30-100)
[2025-04-27 15:55] LABS: FREE T4 1.52 ng/dl (0.89-1.76)
== END | disposition home or self-care (01) ==
LOC: LAB 15:10
PROVIDERS: ATTEND Family Medicine
DX: E55.9 Vitamin D deficiency, unspecified (principal); K21.9 Gastro-esophageal reflux disease without esophagitis; R53.83 Other fatigue; D51.9 Vitamin B12 deficiency anemia, unspecified; G40.909 Epilepsy, unspecified, not intractable, without status epilepticus; E87.6 Hypokalemia